=== PATIENT | female | born 1950 | race Caucasian/White ===

== ENCOUNTER → 2020-06-28 | Outpatient (CLI) | payer MEDICARE, MEDICAID ==
[~2020-06-28] MED LIST: HYDR-4226 PO
--- NOTE | 2020-06-28 09:14 | Diagnostic Imaging Report ---
PROCEDURE: MRI lumbar spine. TECHNIQUE: Multiplanar, multisequence MRI of the lumbar spine was performed without contrast. INDICATION: Chronic low back pain. EXAMINATION: Lumbar spine MRI without contrast 06/28/2020 FINDINGS: There is a grade 1 anterolisthesis L5 on S1. Remaining alignment is preserved. Vertebral body heights maintained. Tip of the conus unremarkable in appearance and location. L1-L2: Unremarkable. L2-L3: Unremarkable. L3-L4: There is disc desiccation with minimal left paracentral annular bulging disc material containing a left paracentral annular tear. There is bilateral facet hypertrophy. No central stenosis. Minimal left neural foraminal narrowing is seen with the right neural foramen unremarkable. L4-L5: There is bilateral facet hypertrophy. There is no significant bulging disc material. No central or neural foraminal stenosis. L5-S1: There are bilateral pars defects. There is intervertebral disc space narrowing, disc desiccation and minimal broad-based bulging disc material flattening the ventral thecal sac. No central stenosis appreciated. There is moderate bilateral neural foraminal narrowing. The visualized intra-abdominal structures demonstrate no acute abnormalities. IMPRESSION: 1. Multilevel degenerative findings as above. Bilateral pars defects incidentally noted at L5 with secondary grade 1 anterolisthesis of L5 on S1. Dictated by: Dictated on workstation # [id number]
== END ==
LOC: RAD 07:37
PROVIDERS: ATTEND Family Medicine
DX: M47.816 Spondylosis without myelopathy or radiculopathy, lumbar region (principal); M43.17 Spondylolisthesis, lumbosacral region; M51.36 Other intervertebral disc degeneration, lumbar region; M51.37 Other intervertebral disc degeneration, lumbosacral region; M51.26 Other intervertebral disc displacement, lumbar region; M51.27 Other intervertebral disc displacement, lumbosacral region; M48.07 Spinal stenosis, lumbosacral region
CPT/HCPCS: 72148

== ENCOUNTER 2020-09-16 05:35 | Outpatient (CLI) | payer MEDICARE, MEDICAID ==
[~2020-09-16] VITALS: Ht 166 cm; Wt 54.5 kg
== END 2020-09-16 11:09 | disposition home or self-care (01) ==
LOC: PREOP 05:35
PROVIDERS: ATTEND Specialist
DX: Z01.818 Encounter for other preprocedural examination (principal)

== ENCOUNTER 2020-09-23 05:51 | Day surgery (SDC) | payer MEDICARE, MEDICAID ==
[~2020-09-23] VITALS: Ht 166 cm; Wt 54.5 kg
[2020-09-23] MEDS ORDERED: TIMOLOL MALEATE 0.5% 5 ML (TIMOPTIC) BTL OU PRN (06:15)
[2020-09-23] MEDS ORDERED: LIDOCAINE PF 1% 2 ML VIAL IR PRN (06:15)
[2020-09-23] MEDS ORDERED: POVIDONE (BETADINE) OPHTH SOLN 5% 30 ML OP ONE (06:15)
[2020-09-23] MEDS ORDERED: MOXIFLOXACIN OPHTH SOLN 5 MG/ML 0.3 ML SYRINGE OP ONE (06:15)
[2020-09-23] MEDS: TETRACAINE 0.5% OPHTH SOLN 4 ML BTL (SINGLE DOSE ONLY) OU PRN ×4 (06:18→06:38)
[2020-09-23] MEDS: TROPICAMIDE 1% OPH SOLN (MYDRIACYL) 15 ML BTL OP SCH ×3 (06:25→06:38)
[2020-09-23] MEDS: PHENYLEPHRINE 10% OPHTH (NEO-SYN) 5 ML BTL OU SCH ×3 (06:25→06:38)
[2020-09-23 06:35] VITALS: BP 128/71
--- NOTE | 2020-09-23 07:29 | Ophthalmologist Pre-Op Note ---
Pre-Operative Progress Note H&P Reviewed The H&P was reviewed, patient examined and no changes noted. Date H&P Reviewed: Sep 23, 2020 Time H&P Reviewed: 07:28 Pre-Op Dx Cataract, Right Eye ROBYN POWELL MD Sep 23, 2020 07:29
[2020-09-23] MEDS ORDERED: acetaZOLAMIDE ER 500 MG CAP (DIAMOX SEQUELS) PO ONE (07:30)
[2020-09-23] MEDS ORDERED: MIDAZOLAM 2 MG/2 ML (VERSED) VIAL ONE (07:32)
--- NOTE | 2020-09-23 07:50 | Ophthalmology Operative Report ---
Cataract removal/placement IOL PREOPERATIVE DIAGNOSIS: Cataract Right Eye POSTOPERATIVE DIAGNOSIS: Cataract Right Eye PROCEDURE: Cataract removal and placement of posterior chamber implant, right eye SURGEON: Mohan Powell ANESTHESIA: Topical with sedation COMPLICATIONS: None ESTIMATED BLOOD LOSS: Minimal DESCRIPTION OF PROCEDURE: After proper informed consent was obtained, the patient, a 70 female, was taken to the Operating Room and the right eye was anesthetized with tetracaine. The right eye was then prepped and draped in the usual manner. A wire lid speculum was placed. A paracentesis was made at the left hand position. Preservative free lidocaine was injected into the anterior chamber followed by viscoelastic. A clear corneal incision was made in the temporal position. A capsulorrhexis was preformed and the central nuclear and cortical material were removed. The posterior capsule was polished and Kapil 22.5 AU00T0 IOL was placed into the capsular bag. The residual viscoelastic was aspirated and balanced saline solution was injected into the anterior chamber. Moxifloxacin was injected into the anterior chamber. The wound was checked and found to be water tight. The patient tolerated the procedure well without complications. MOHAN POWELL MD Sep 23, 2020 07:50
[2020-09-23 07:58] VITALS: BP 118/71
--- NOTE | 2020-09-23 12:45 | Anesthesia-General Post-Op ---
MAC Patient Condition Mental Status/LOC: Same as Preop Cardiovascular: Satisfactory Nausea/Vomiting: Absent Respiratory: Satisfactory Pain: Controlled Complications: Absent Post Op Complications Complications None Follow Up Care/Instructions Patient Instructions None needed. Anesthesiology Discharge Order Discharge Order Patient is doing well, no complaints, stable vital signs, no apparent adverse anesthesia problems. No complications reported per nursing. ADRIEL CARDONA CRNA Sep 23, 2020 12:45
== END 2020-09-23 07:58 ==
LOC: SDC 05:51
PROVIDERS: ATTEND Specialist
DX: H25.11 Age-related nuclear cataract, right eye (principal); M19.90 Unspecified osteoarthritis, unspecified site; F32.9 Major depressive disorder, single episode, unspecified; F41.9 Anxiety disorder, unspecified; R51.9 Headache, unspecified; G47.00 Insomnia, unspecified; Z79.891 Long term (current) use of opiate analgesic; Z79.899 Other long term (current) drug therapy
CPT/HCPCS: 66984; V2632

== ENCOUNTER 2020-09-30 05:35 | Outpatient (CLI) | payer MEDICARE, MEDICAID ==
[~2020-09-30] VITALS: Ht 165.1 cm; Wt 55.9 kg
== END 2020-09-30 11:04 | disposition home or self-care (01) ==
LOC: PREOP 05:35
PROVIDERS: ATTEND Specialist
DX: Z01.818 Encounter for other preprocedural examination (principal)

== ENCOUNTER 2020-10-07 06:32 | Day surgery (SDC) | payer MEDICARE, MEDICAID ==
[~2020-10-07] VITALS: Ht 165.1 cm; Wt 55.9 kg
[2020-10-07 06:45] VITALS: BP 118/98
[2020-10-07] MEDS ORDERED: LIDOCAINE PF 1% 2 ML VIAL IR PRN (06:45)
[2020-10-07] MEDS ORDERED: acetaZOLAMIDE ER 500 MG CAP (DIAMOX SEQUELS) PO ONE (06:45)
[2020-10-07] MEDS ORDERED: MOXIFLOXACIN OPHTH SOLN 5 MG/ML 0.3 ML SYRINGE OP ONE (06:45)
[2020-10-07] MEDS ORDERED: POVIDONE (BETADINE) OPHTH SOLN 5% 30 ML OP ONE (06:45)
[2020-10-07] MEDS ORDERED: TIMOLOL MALEATE 0.5% 5 ML (TIMOPTIC) BTL OU PRN (06:45)
[2020-10-07] MEDS: TETRACAINE 0.5% OPHTH SOLN 4 ML BTL (SINGLE DOSE ONLY) OU PRN ×4 (06:46→07:13)
[2020-10-07] MEDS: TROPICAMIDE 1% OPH SOLN (MYDRIACYL) 15 ML BTL OP SCH ×3 (06:58→07:13)
[2020-10-07] MEDS: PHENYLEPHRINE 10% OPHTH (NEO-SYN) 5 ML BTL OU SCH ×3 (06:58→07:13)
[2020-10-07] MEDS ORDERED: MIDAZOLAM 2 MG/2 ML (VERSED) VIAL ONE (07:06)
--- NOTE | 2020-10-07 07:46 | Ophthalmologist Pre-Op Note ---
Pre-Operative Progress Note H&P Reviewed The H&P was reviewed, patient examined and no changes noted. Date H&P Reviewed: Oct 07, 2020 Time H&P Reviewed: 07:45 Pre-Op Dx Cataract, Left Eye ROBYN POWELL MD Oct 07, 2020 07:45
--- NOTE | 2020-10-07 08:08 | Ophthalmology Operative Report ---
Cataract removal/placement IOL PREOPERATIVE DIAGNOSIS: Cataract Left Eye POSTOPERATIVE DIAGNOSIS: Cataract Left Eye PROCEDURE: Cataract removal and placement of posterior chamber implant, left eye SURGEON: Mohan Powell ANESTHESIA: Topical with sedation COMPLICATIONS: None ESTIMATED BLOOD LOSS: Minimal DESCRIPTION OF PROCEDURE: After proper informed consent was obtained, the patient, a 70 female, was taken to the Operating Room and the left eye was anesthetized with tetracaine. The left eye was then prepped and draped in the usual manner. A wire lid speculum was placed. A paracentesis was made at the left hand position. Preservative free lidocaine was injected into the anterior chamber followed by viscoelastic. A clear corneal incision was made in the temporal position. A capsulorrhexis was preformed and the central nuclear and cortical material were removed. The posterior capsule was polished and an Kapil 23.0 AU00T0 was placed into the capsular bag. The residual viscoelastic was aspirated and balanced saline solution was injected into the anterior chamber. Moxifloxacin was injected into the anterior chamber. The wound was checked and found to be water tight. The patient tolerated the procedure well without complications. MOHAN POWELL MD Oct 07, 2020 08:08
[2020-10-07 08:12] VITALS: BP 110/62
--- NOTE | 2020-10-07 10:53 | Anesthesia-General Post-Op ---
MAC Patient Condition Mental Status/LOC: Same as Preop Cardiovascular: Satisfactory Nausea/Vomiting: Absent Respiratory: Satisfactory Pain: Controlled Complications: Absent Post Op Complications Complications None Follow Up Care/Instructions Patient Instructions None needed. Anesthesiology Discharge Order Discharge Order Patient is doing well, no complaints, stable vital signs, no apparent adverse anesthesia problems. No complications reported per nursing. CHRISTIAN SMITH CRNA Oct 07, 2020 10:53
== END 2020-10-07 08:13 ==
LOC: SDC 06:32
PROVIDERS: ATTEND Specialist
DX: H25.12 Age-related nuclear cataract, left eye (principal); F32.9 Major depressive disorder, single episode, unspecified; F41.9 Anxiety disorder, unspecified; M19.90 Unspecified osteoarthritis, unspecified site; G47.00 Insomnia, unspecified; Z79.899 Other long term (current) drug therapy
CPT/HCPCS: 66984; V2632

== ENCOUNTER → 2020-11-04 | Outpatient (CLI) | payer MEDICARE, MEDICAID | LOC: LABNPT 06:05 | PROVIDERS: ATTEND Orthopaedic Surgery | DX: Z01.812 Encounter for preprocedural laboratory examination (principal); Z20.822 Contact with and (suspected) exposure to COVID-19 | CPT/HCPCS: 87635 ==

== ENCOUNTER 2021-02-27 21:03 | Emergency (ER) | payer MEDICARE, MEDICAID ==
[~2021-02-27] VITALS: Ht 167.7 cm; Wt 56.7 kg
[2021-02-27] MEDS ORDERED: ONDANSETRON 4 MG/2 ML (SDV) Z0FRAN IVP ONE (21:15)
[2021-02-27] MEDS ORDERED: LACTATED RINGERS 1,000 ML IV ONE (21:15)
[2021-02-27] MEDS ORDERED: ONDA4TAB11 PO (21:43)
[2021-02-27] MEDS ORDERED: KETOROLAC 30 MG/ML VIAL IVP ONE (21:45)
--- NOTE | 2021-02-27 21:45 | ED General ---
General Chief Complaint: COVID19 Suspect/Confirmed Stated Complaint: COVID POSITIVE Nursing Triage Note: PT TO RM [facility] VIA [facility] W REPORTS OF N/V/D D/T COVID. PT COVID + THIS AM, SYMPTOMS SX SATURDAY. PT REQUESTING ANTIBODY INFUSION THIS VISIT, INFORMS THAT SHE TRIED TO GET SCHEDULED AT [facility] TODAY BUT ALL WERE FULL. PT REPORTS SHE HAS BEEN DRINKING A LOT OF WATER. A&OX4, DENIES PAIN. Source of Information: Patient Exam Limitations: No Limitations History of Present Illness Date Seen by Provider: Feb 27, 2021 Time Seen by Provider: 21:05 Allergies and Home Medications Allergies Coded Allergies: No Known Drug Allergies (Unverified , 02/02/15) Patient Home Medication List No Active Prescriptions or Reported Meds Past Ukaazyz-Cmxqpb-Kqcmoy Hx Patient Social History Tobacco Use?: No Use of E-Cig and/or Vaping dev: No Substance use?: No Alcohol Use?: No Immunizations Up To Date Influenza Vaccine Up-to-Date: No; Not Current First/Initial COVID19 Vaccinat: NONE Second COVID19 Vaccination Huy: NONE Third COVID19 Vaccination Date: NONE COVID19 Vaccine Finance Insurance Manager: NONE Seasonal Allergies Seasonal Allergies: No Past Medical History Surgeries: Yes (cyst from arm, oral sx) Respiratory: No Cardiac: No Neurological: No Gastrointestinal: No Musculoskeletal: No Endocrine: No HEENT: No Cancer: No Psychosocial: No Integumentary: Yes (laury cyst) Blood Disorders: No Physical Exam Vital Signs Vital Signs - First Documented 02/27/21 21:04 Temp 36.9 Pulse 103 Resp 20 B/P (MAP) 138/82 (100) Pulse Ox 96 O2 Delivery Room Air Capillary Refill : Less Than 3 Seconds Height, Weight, BMI Height: 5'6.00" Weight: 125lbs. oz. [id number]; 20.00 BMI Method:Stated Progress/Results/Core Measures Suspected Sepsis SIRS Temperature: Pulse: 103 Respiratory Rate: 20 Blood Pressure 138 /82 Mean: 100 Results/Orders My Orders Orders - JHONY RAMOS MD Ed Iv/Invasive Line Start (02/27/21 21:08) Lactated Ringers (Lr 1000 Ml Iv Solution (02/27/21 21:15) Ondansetron Injection (Zofran Injectio (02/27/21 21:15) Ketorolac Injection (Toradol Injection) (02/27/21 21:45) Medications Given in ED Current Medications Medications Dose Ordered Sig/Champ Route Start Time Stop Time Status Last Admin Dose Admin Lactated Ringer's 1,000 ml @ 0 mls/hr Q0M ONCE IV 02/27/21 21:15 02/27/21 21:16 DC 02/27/21 21:18 0 MLS/HR Ondansetron HCl 8 mg ONCE ONCE IVP 02/27/21 21:15 02/27/21 21:16 DC 02/27/21 21:18 8 MG Vital Signs/I&O 02/27/21 21:04 Temp 36.9 Pulse 103 Resp 20 B/P (MAP) 138/82 (100) Pulse Ox 96 O2 Delivery Room Air Capillary Refill : Less Than 3 Seconds Blood Pressure Mean: 100 Progress Note : Progress Note Vital signs were unremarkable. Patient received Zofran and a liter of IV fluid. She is being discharged home with Zofran Rx. An order for monoclonal antibodies was placed with the pharmacy. See discharge instructions for more discussion. Departure Impression Primary Impression: COVID-19 Additional Impressions: Nausea vomiting and diarrhea Myalgia Disposition: 01 HOME, SELF-CARE Condition: Improved Departure-Patient Inst. Decision time for Depature: 21:42 Referrals: LEÓN JHA DO (PCP/Family) Primary Care Physician Patient Instructions: COVID-19 Overview, Sotrovimab FDA Fact Sheet Add. Discharge Instructions: Drink plenty of clear liquids to stay well-hydrated. Gradually advance your diet with small quantities of bland food as tolerated. An order for monoclonal antibody infusion has been placed with the pharmacy. If they have doses, available for you, you should be called to schedule an appointment time for the infusion. Use Zofran (ondansetron) as prescribed for nausea and vomiting. You may use Tylenol (acetaminophen) for pain or fever. Follow dosing instruc tions on the bottle. Call with questions or concerns. Return to the ER if you have worsening symptoms. All discharge instructions reviewed with patient and/or family. Voiced understanding. Scripts Ondansetron (Ondansetron Odt) 4 Mg Tab.rapdis 4 MG PO Q4H PRN for NAUSEA/VOMITING, #10 TAB Prov: JHONY RAMOS MD 02/27/21 JHONY RAMOS MD Feb 27, 2021 21:45
[2021-02-27 22:15] VITALS: BP 139/82
== END 2021-02-27 22:20 | disposition home or self-care (01) ==
LOC: EDUNIT# 21:03 → ER 21:05
DX: U07.1 COVID-19 (principal)

== ENCOUNTER 2021-03-03 10:52 | Outpatient (CLI) | payer MEDICARE, MEDICAID ==
[~2021-03-03] VITALS: Ht 167.7 cm; Wt 56.7 kg
[~2021-03-03 10:52] MED LIST changes: +ONDA4TAB11 PO
[2021-03-03] MEDS ORDERED: ONDANSETRON 4 MG/2 ML (SDV) Z0FRAN IV PRN (11:00)
[2021-03-03] MEDS ORDERED: CASIRIVIMAB/IMDEVIMAB 1,200 MG in NS (IVPB) 50 ML IV ONE (11:00)
[2021-03-03] MEDS ORDERED: ACETAMINOPHEN 500 MG TAB (TYLENOL) PO PRN (11:00)
[2021-03-03] MEDS ORDERED: diphenhydrAMINE 50 MG/ML INJ (BENADRYL) IV PRN (11:00)
[2021-03-03] MEDS ORDERED: EPINEPHrine INJECTION 1 MG/ML AMP IM PRN (11:00)
[2021-03-03 11:10] VITALS: BP 131/68
[2021-03-03 12:18] VITALS: BP 117/90
[2021-03-04] MEDS ORDERED: ONDA8TAB13 PO (00:49)
[2021-03-04] MEDS ORDERED: PANT40TA2 PO (00:49)
== END 2021-03-03 12:18 ==
LOC: INFUSION 10:52
PROVIDERS: ATTEND Family Medicine
DX: U07.1 COVID-19 (principal)

== ENCOUNTER 2021-03-03 22:48 | Emergency (ER) | payer MEDICARE, MEDICAID ==
[~2021-03-03] VITALS: Ht 165 cm; Wt 56.0 kg
--- NOTE | 2021-03-03 23:07 | ED General ---
General Chief Complaint: COVID19 Suspect/Confirmed Stated Complaint: N,COVID + Source of Information: Patient History of Present Illness Date Seen by Provider: Mar 03, 2021 Time Seen by Provider: 23:05 Initial Comments PT ARRIVES VIA POV FROM HOME PT HAS TESTED POSITIVE FOR COVID-19 ON 02/27/21--WAS SEEN AT DR. JHA'S OFFICE THAT DAY AND TESTED POSITIVE. WAS GIVEN RX FOR ANTIBIOTICS. CAME TO ER LATER THAT SAME DAY BECAUSE SHE FELT BAD--GIVEN IV FLUIDS AND NAUSEA MEDICATIONS AND WAS SENT HOME WITH RX FOR ZOFRAN ODT 4 MG HAD MONOCLONAL ANTIBODY INFUSION TODAY STATES SHE "JUST JUST DOESN'T FEEL GOOD" STATES "I'M DEHYDRATED AND I'M NAUSEATED AND I'M WEAK AND TIRED AND I JUST DON'T FEEL GOOD" HAS SLIGHT COUGH AND CONGESTION NO CHEST PAIN OR SHORTNESS OF BREATH HAS NOT HAD A HEADACHE FOR 2 DAYS HAS NOT HAD FEVER STILL WITH BODY ACHES, AND LOWER BACK ACHE--HAS CHRONIC BACK PAIN HAS NOT HAD DIARRHEA SINCE Saturday02/27/21, HAD BM TODAY HAS NOT VOMITED FOR SEVERAL DAYS, BUT STILL C/O NAUSEA--STATES "I HAVE TO FORCE MYSELF TO EAT AND DRINK". DENIES LOSS OF TASTE OR SMELL. TOOK 1 ZOFRAN THIS MORNING, STATES "IT'S NOT WORKING" PT IS STILL URINATING, BUT STATES "I HAVE TO PUSH IT OUT". NO PAIN OR DISCOMFORT ON URINATION NO ABDOMINAL PAIN TOOK 1 TYLENOL EARLIER TODAY, STATES "IT'S NOT HELPING" SHE STATES THE TYLENOL IS MAKING HER SICK DENIES CHRONIC ILLNESSES, AND DOES NOT TAKE ANY DAILY MEDICATIONS. PCP: DR. JHA Allergies and Home Medications Allergies Coded Allergies: No Known Drug Allergies (Unverified , 02/02/15) Patient Home Medication List Home Medication List Reviewed: Yes Ondansetron (Ondansetron Odt) 4 Mg Tab.rapdis, 4 MG PO Q4H PRN for NAUSEA/VOMITING Prescribed by: JHONY APONTE on 02/27/212142 Ondansetron (Ondansetron Odt) 8 Mg Tab.rapdis, 8 MG PO Q6H Prescribed by: MICHAEL BRAGG on 03/04/21 0049 Pantoprazole Sodium (Protonix) 40 Mg Tablet.dr, 40 MG PO DAILY Prescribed by: MICHAEL BRAGG on 03/04/21 0049 Review of Systems Review of Systems Constitutional: see HPI; No diaphoresis, No dizziness, No fever; malaise, weakness EENTM: no symptoms reported Respiratory: cough; No short of breath Cardiovascular: no symptoms reported Gastrointestinal: see HPI; No abdominal pain; loss of appetite, nausea Genitourinary: see HPI Musculoskeletal: see HPI Skin: no symptoms reported Psychiatric/Neurological: No Symptoms Reported Hematologic/Lymphatic: No Symptoms Reported Immunological/Allergic: no symptoms reported Past Rsdvirj-Mchggv-Blvvwh Hx Patient Social History Tobacco Use?: No Substance use?: No Alcohol Use?: No Immunizations Up To Date First/Initial COVID19 Vaccinat: NONE Second COVID19 Vaccination Huy: NONE Third COVID19 Vaccination Date: NONE Seasonal Allergies Seasonal Allergies: No Past Medical History Surgeries: Yes (cyst from arm, oral sx;BILATERAL CATARACT SURGERY) Eye Surgery Respiratory: No Cardiac: No 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 oz. 56.352115sd; 20.16 BMI Method:Stated General Appearance: No Apparent Distress, WD/WN, Other (DOES NOT APPEAR ILL OR TO BE IN ANY DISCOMFORT OR DISTRESS) HEENT: Normal ENT Inspection Neck: Normal Inspection Respiratory: Normal Breath Sounds, No Accessory Muscle Use, No Respiratory Distress Cardiovascular: Regular Rate, Rhythm, No Edema, No JVD, No Murmur, Normal Peripheral Pulses Gastrointestinal: Normal Bowel Sounds, No Organomegaly, Non Tender, Soft Back: Normal Inspection, No CVA Tenderness, No Vertebral Tenderness Extremity: Normal Capillary Refill, Normal Inspection, Normal Range of Motion, Non Tender, No Calf Tenderness, No Pedal Edema Neurologic/Psychiatric: Alert, Oriented x3, No Motor/Sensory Deficits, pad tufter II- XII Norm as Tested Skin: Normal Color, Warm/Dry Progress/Results/Core Measures Suspected Sepsis SIRS Temperature: Pulse: Respiratory Rate: Laboratory Tests 03/03/21 23:59: White Blood Count 4.5 Blood Pressure / Mean: Laboratory Tests 03/03/21 23:59: Creatinine 0.76, Platelet Count 186, Total Bilirubin 0.6 Results/Orders Lab Results Laboratory Tests Test 03/03/21 23:57 03/03/21 23:59 Range/Units Urine Color YELLOW Urine Clarity CLEAR Urine pH 6.5 5-9 Urine Specific [place] 1.015 L 1.016-1.022 Urine Protein NEGATIVE NEGATIVE Urine Glucose (UA) NEGATIVE NEGATIVE Urine Ketones NEGATIVE NEGATIVE Urine Nitrite NEGATIVE NEGATIVE Urine Bilirubin NEGATIVE NEGATIVE Urine Urobilinogen 0.2 < = 1.0 MG/DL Urine Leukocyte Esterase NEGATIVE NEGATIVE Urine RBC (Auto) NEGATIVE NEGATIVE Urine RBC NONE /HPF Urine WBC NONE /HPF Urine Crystals NONE /LPF Urine Bacteria NEGATIVE /HPF Urine Casts NONE /LPF Urine Mucus NEGATIVE /LPF Urine Culture Indicated NO White Blood Count 4.5 4.3-11.0 10^3/uL Red Blood Count 4.69 3.80-5.11 10^6/uL Hemoglobin 14.7 11.5-16.0 g/dL Hematocrit 43 35-52 % Mean Corpuscular Volume 91 80-99 fL Mean Corpuscular Hemoglobin 31 25-34 pg Mean Corpuscular Hemoglobin Concent 35 32-36 g/dL Red Cell Distribution Width 11.9 10.0-14.5 % Platelet Count 186 130-400 10^3/uL Mean Platelet Volume 9.8 9.0-12.2 fL Immature Granulocyte % (Auto) 1 % Neutrophils (%) (Auto) 57 42-75 % Lymphocytes (%) (Auto) 32 12-44 % Monocytes (%) (Auto) 10 0-12 % Eosinophils (%) (Auto) 0 0-10 % Basophils (%) (Auto) 0 0-10 % Neutrophils # (Auto) 2.5 1.8-7.8 10^3/uL Lymphocytes # (Auto) 1.4 1.0-4.0 10^3/uL Monocytes # (Auto) 0.4 0.0-1.0 10^3/uL Eosinophils # (Auto) 0.0 0.0-0.3 10^3/uL Basophils # (Auto) 0.0 0.0-0.1 10^3/uL Immature Granulocyte # (Auto) 0.0 0.0-0.1 10^3/uL Sodium Level 135 135-145 MMOL/L Potassium Level 3.8 3.6-5.0 MMOL/L Chloride Level 97 L 98-107 MMOL/L Carbon Dioxide Level 26 21-32 MMOL/L Anion Gap 12 5-14 MMOL/L Blood Urea Nitrogen 12 7-18 MG/DL Creatinine 0.76 0.60-1.30 MG/DL Estimat Glomerular Filtration Rate 84 BUN/Creatinine Ratio 16 Glucose Level 106 H 70-105 MG/DL Calcium Level 9.3 8.5-10.1 MG/DL Corrected Calcium 9.1 8.5-10.1 MG/DL Magnesium Level 2.0 1.6-2.4 MG/DL Total Bilirubin 0.6 0.1-1.0 MG/DL Aspartate Amino Transf (AST/SGOT) 21 5-34 U/L Alanine Aminotransferase (ALT/SGPT) 17 0-55 U/L Alkaline Phosphatase 55 40-136 U/L Total Protein 7.6 6.4-8.2 GM/DL Albumin 4.3 3.2-4.5 GM/DL Amylase Level 71 25-125 U/L Lipase 40 8-78 U/L My Orders Orders - MICHAEL BRAGG DO Ed Iv/Invasive Line Start (03/03/21 23:46) Monitor-Rhythm Ecg Trace Only (03/03/21 23:46) Amylase (03/03/21 23:46) Cbc With Automated Diff (03/03/21 23:46) Comprehensive Metabolic Panel (03/03/21 23:46) Lipase (03/03/21 23:46) Magnesium (03/03/21 23:46) Ua Culture If Indicated (03/03/21 23:46) Ondansetron Injection (Zofran Injectio (03/04/21 00:00) Ed Iv/Invasive Line Start (03/03/21 23:46) Lactated Ringers (Lr 1000 Ml Iv Solution (03/04/21 00:00) Medications Given in ED Current Medications Medications Dose Ordered Sig/Champ Route Start Time Stop Time Status Last Admin Dose Admin Lactated Ringer's 1,000 ml @ 0 mls/hr Q0M ONCE IV 03/04/21 00:00 03/04/21 00:01 DC 03/03/21 23:56 0 MLS/HR Ondansetron HCl 8 mg ONCE ONCE IVP 03/04/21 00:00 03/04/21 00:01 DC 03/03/21 23:56 8 MG Vital Signs/I&O 03/03/21 03/04/21 23:10 00:50 Temp 36.0 Pulse 108 88 Resp 16 18 B/P (MAP) 141/84 (103) 129/90 Pulse Ox 94 98 O2 Delivery Room Air Room Air Capillary Refill : Progress Note : Progress Note PLACED IN ISOLATION ROOM PPE WORN AT ALL TIMES GIVEN IV FLUIDS AND ZOFRAN STATES SHE FEELS BETTER AT DISMISSAL NO DETERIORATION IN PT'S CONDITION DURING ER STAY Departure Impression Primary Impression: COVID-19 Additional Impressions: NAUSEA Myalgia Disposition: HOME, SELF-CARE Condition: Stable Departure-Patient Inst. Decision time for Depature: 00:47 Referrals: LEÓN JHA DO (PCP/Family) Primary Care Physician Patient Instructions: COVID-19 (DC), Nausea and Vomiting, Adult (DC), Preventing the Spread of an Infectious Disease Add. Discharge Instructions: LOTS OF CLEAR LIQUIDS--WATER, BROTH, JELLO, GATORADE BRATS DIET--BANANAS, RICE, APPLESAUCE, TOAST, SALTINES TYLENOL 1 GRAM PLUS MOTRIN 800 MG 4 TIMES A DAY NEEDED FOR PAIN OR FEVER FOLLOW UP WITH DR. JHA ON SATURDAY IF NO BETTER, RETURN TO ER IF WORSE All discharge instructions reviewed with patient and/or family. Voiced understanding. Scripts Pantoprazole Sodium (Protonix) 40 Mg Tablet.dr 40 MG PO DAILY, #15 TAB Prov: MICHAEL BRAGG DO 03/04/21 Ondansetron (Ondansetron Odt) 8 Mg Tab.rapdis 8 MG PO Q6H, #15 TAB Prov: MICHAEL BRAGG DO 03/04/21 MICHAEL BRAGG DO Mar 03, 2021 23:07
[2021-03-04] MEDS ORDERED: LACTATED RINGERS 1,000 ML IV ONE
[2021-03-04] MEDS ORDERED: ONDANSETRON 4 MG/2 ML (SDV) Z0FRAN IVP ONE
[2021-03-04 00:07] LABS: BILIRUBIN,URINE NEGATIVE (NEGATIVE); CLARITY,URINE CLEAR; COLOR,URINE YELLOW; GLUCOSE, URINE (UA) NEGATIVE (NEGATIVE); KETONES,URINE NEGATIVE (NEGATIVE); LEUKOCYTE ESTERASE ,URINE NEGATIVE (NEGATIVE); NITRITE,URINE NEGATIVE (NEGATIVE); PH,URINE 6.5 (5-9); PROTEIN,URINE NEGATIVE (NEGATIVE)
[2021-03-04 00:12] LABS: BASOPHILS % (AUTO) 0 % (0-10); EOSINOPHILS % (AUTO) 0 % (0-10); HEMATOCRIT 43 % (35-52); HEMOGLOBIN 14.7 g/dL (11.5-16.0); LYMPHOCYTES # (AUTO) 1.4 10^3/uL (1.0-4.0); LYMPHOCYTES % (AUTO) 32 % (12-44); MEAN CORPUSCULAR HEMOGLOBIN 31 pg (25-34); MEAN CORPUSCULAR HGB CONC 35 g/dL (32-36); MEAN CORPUSCULAR VOLUME 91 fL (80-99); MEAN PLATELET VOLUME 9.8 fL (9.0-12.2); MONOCYTES # (AUTO) 0.4 10^3/uL (0.0-1.0); MONOCYTES % (AUTO) 10 % (0-12); NEUTROPHILS # (AUTO) 2.5 10^3/uL (1.8-7.8); NEUTROPHILS % (AUTO) 57 % (42-75); PLATELET COUNT 186 10^3/uL (130-400); WHITE BLOOD COUNT 4.5 10^3/uL (4.3-11.0)
[2021-03-04 00:15] LABS: BACTERIA,URINE NEGATIVE /HPF
[2021-03-04 00:29] LABS: ALBUMIN 4.3 GM/DL (3.2-4.5); POTASSIUM 3.8 MMOL/L (3.6-5.0)
[2021-03-04 00:30] LABS: CALCIUM 9.3 MG/DL (8.5-10.1)
[2021-03-04 00:31] LABS: TOTAL PROTEIN 7.6 GM/DL (6.4-8.2)
[2021-03-04 00:33] LABS: BILIRUBIN,TOTAL 0.6 MG/DL (0.1-1.0)
[2021-03-04 00:35] LABS: CREATININE SERUM 0.76 MG/DL (0.60-1.30)
[2021-03-04] MEDS ORDERED: ONDA8TAB13 PO (00:49)
[2021-03-04] MEDS ORDERED: PANT40TA2 PO (00:49)
[2021-03-04 00:50] VITALS: BP 129/90
== END 2021-03-04 00:55 | disposition home or self-care (01) ==
LOC: EDUNIT# 22:48 → ER 22:54
DX: U07.1 COVID-19 (principal); R11.0 Nausea; M79.10 Myalgia, unspecified site
CPT/HCPCS: 36415; 80053; 81000; 82150; 83690; 83735; 85025; 93041; 96361; 96374

== ENCOUNTER 2021-10-05 20:00 | Emergency (ER) | payer MEDICARE, MEDICAID ==
[~2021-10-05] VITALS: Ht 165.1 cm; Wt 56.1 kg
[~2021-10-05 20:00] MED LIST changes: +ONDA8TAB13 PO; +PANT40TA2 PO
[2021-10-05] MEDS ORDERED: fentaNYL INJ 100 MCG/2 ML AMP IVP STA (20:20)
[2021-10-05 20:22] LABS: BILIRUBIN,URINE NEGATIVE (NEGATIVE); CLARITY,URINE CLEAR; COLOR,URINE YELLOW; GLUCOSE, URINE (UA) NEGATIVE (NEGATIVE); KETONES,URINE NEGATIVE (NEGATIVE); LEUKOCYTE ESTERASE ,URINE TRACE (NEGATIVE); NITRITE,URINE NEGATIVE (NEGATIVE); PROTEIN,URINE NEGATIVE (NEGATIVE)
--- NOTE | 2021-10-05 20:27 | ED Abdominal Pain ---
General Chief Complaint: Back Problems Stated Complaint: LOW BACK/KIDNEY NAUSEA Source of Information: Patient Exam Limitations: No Limitations History of Present Illness Date Seen by Provider: Oct 05, 2021 Time Seen by Provider: 20:23 Initial Comments Patient is a 71-year-old female who presents to the ED for low back pain and left lower quad abdominal pain. She has a history of low back pain. Had a spinal block performed about a year ago and epidural 1 month ago. She has been having this lower back pain over the past 4 to 5 months. She denies of any bowel or urine incontinence, saddle paresthesia, lower extremity weakness or sensory changes. She is currently on tramadol but this upsets her stomach. Start developing this left lower quad abdominal pain initially dull and achy and intermittent but became worse this evening described as sharp. She does report urinating frequently worse at night. History of cholecystectomy. Denies of any weight loss, fever, chest pain, cough or shortness of breath. Has been feeling nauseous but no vomiting. Intermittent diarrhea and constipation but denies of any dark tarry stool, bloody stool or mucousy stool. Allergies and Home Medications Allergies Coded Allergies: No Known Drug Allergies (Unverified , 02/02/15) Patient Home Medication List Home Medication List Reviewed: Yes Hydrocodone/Acetaminophen (Hydrocodone-Acetamin 5-325 mg) 5 Mg-325 Mg Tablet, 1 TAB PO Q4H PRN for PAIN-MODERATE (5-7) Prescribed by: YOLY BEST on 10/05/212240 Ondansetron (Ondansetron Odt) 4 Mg Tab.rapdis, 4 MG PO Q4H PRN for NAUSEA/VOMITING Prescribed by: JHONY APONTE on 02/27/212142 Ondansetron (Ondansetron Odt) 8 Mg Tab.rapdis, 8 MG PO Q6H Prescribed by: MICHAEL BRAGG on 03/04/2148 Pantoprazole Sodium (Protonix) 40 Mg Tablet., 40 MG PO DAILY Prescribed by: MICHAEL BRAGG on 03/04/2148 Pantoprazole Sodium (Protonix) 40 Mg Tablet.dr, 40 MG PO DAILY Prescribed by: YOLY BEST on 10/05/212240 Review of Systems Review of Systems Constitutional: No chills, No diaphoresis, No malaise, No weakness EENTM: No Eye Pain Respiratory: Denies Cough, Denies Shortness of Air Cardiovascular: Denies Chest Pain Gastrointestinal: Abdominal Pain, Constipated, Diarrhea, Nausea; Denies Rectal Bleeding, Denies Vomiting Genitourinary: Denies Burning, Denies Discharge; Frequency Musculoskeletal: No back pain, No joint pain Skin: No change in color, No change in hair/nails All Other Systems Reviewed Negative Unless Noted: Yes Past Vhanaqy-Njfxha-Jycalh Hx Patient Social History Tobacco Use?: No Use of E-Cig and/or Vaping dev: No Substance use?: No Alcohol Use?: No Pt feels they are or have been: No Immunizations Up To Date Influenza Vaccine Up-to-Date: No; Not Current First/Initial COVID19 Vaccinat: NONE Second COVID19 Vaccination Huy: NONE Third COVID19 Vaccination Date: NONE Seasonal Allergies Seasonal Allergies: No Past Medical History Surgeries: Yes (cyst from arm, oral sx;BILATERAL CATARACT SURGERY) Eye Surgery Respiratory: No Cardiac: No Neurological: No ASSESSMENT COUNSELOR History: Menopausal Genitourinary: No Gastrointestinal: No Musculoskeletal: Yes Chronic Back Pain Endocrine: No HEENT: No Cancer: No Psychosocial: No Integumentary: Yes (laury cyst) Blood Disorders: No Physical Exam Vital Signs Vital Signs - First Documented 10/05/21 20:21 Temp 37.0 Pulse 119 Resp 20 B/P (MAP) 166/101 (122) Pulse Ox 96 O2 Delivery Room Air Capillary Refill : Height/Weight/BMI Height: 5'6.00" Weight: 125lbs. oz. 56.837306pa; 20.00 BMI Method:Stated General Appearance: WD/WN, no apparent distress HEENT: PERRL/EOMI, normal ENT inspection, TMs normal, pharynx normal Neck: non-tender, full range of motion, supple Respiratory: chest non-tender, lungs clear, normal breath sounds, no respiratory distress, no accessory muscle use Cardiovascular: regular rate, rhythm, no edema, no gallop, no JVD Gastrointestinal: normal bowel sounds, soft, no organomegaly, tenderness (llq abd pain) Rectal: normal exam Extremities: normal range of motion, non-tender, normal inspection, no pedal edema Back: normal inspection, no CVA tenderness, no vertebral tenderness Neurologic/Psychiatric: storeperson II-XII nml as tested, no motor/sensory deficits, alert, normal mood/affect, oriented x 3 Skin: normal color, warm/dry Progress/Results/Core Measures Results/Orders Lab Results Laboratory Tests Test 10/05/21 20:15 10/05/21 20:29 Range/Units Urine Color YELLOW Urine Clarity CLEAR Urine pH 6.0 5-9 Urine Specific Cornelia 1.020 1.016-1.022 Urine Protein NEGATIVE NEGATIVE Urine Glucose (UA) NEGATIVE NEGATIVE Urine Ketones NEGATIVE NEGATIVE Urine Nitrite NEGATIVE NEGATIVE Urine Bilirubin NEGATIVE NEGATIVE Urine Urobilinogen 0.2 < = 1.0 MG/DL Urine Leukocyte Esterase TRACE H NEGATIVE Urine RBC (Auto) NEGATIVE NEGATIVE Urine RBC NONE /HPF Urine WBC 2-5 /HPF Urine Squamous Epithelial Cells NONE /HPF Urine Renal Epithelial Cells NONE /HPF Urine Crystals NONE /LPF Urine Bacteria NEGATIVE /HPF Urine Casts NONE /LPF Urine Mucus NEGATIVE /LPF Urine Culture Indicated YES White Blood Count 7.0 4.3-11.0 10^3/uL Red Blood Count 4.20 3.80-5.11 10^6/uL Hemoglobin 13.5 11.5-16.0 g/dL Hematocrit 38 35-52 % Mean Corpuscular Volume 91 80-99 fL Mean Corpuscular Hemoglobin 32 25-34 pg Mean Corpuscular Hemoglobin Concent 35 32-36 g/dL Red Cell Distribution Width 12.2 10.0-14.5 % Platelet Count 164 130-400 10^3/uL Mean Platelet Volume 10.7 9.0-12.2 fL Immature Granulocyte % (Auto) 0 % Neutrophils (%) (Auto) 52 42-75 % Lymphocytes (%) (Auto) 40 12-44 % Monocytes (%) (Auto) 6 0-12 % Eosinophils (%) (Auto) 1 0-10 % Basophils (%) (Auto) 0 0-10 % Neutrophils # (Auto) 3.6 1.8-7.8 10^3/uL Lymphocytes # (Auto) 2.8 1.0-4.0 10^3/uL Monocytes # (Auto) 0.5 0.0-1.0 10^3/uL Eosinophils # (Auto) 0.1 0.0-0.3 10^3/uL Basophils # (Auto) 0.0 0.0-0.1 10^3/uL Immature Granulocyte # (Auto) 0.0 0.0-0.1 10^3/uL Sodium Level 139 135-145 MMOL/L Potassium Level 3.7 3.6-5.0 MMOL/L Chloride Level 102 98-107 MMOL/L Carbon Dioxide Level 24 21-32 MMOL/L Anion Gap 13 5-14 MMOL/L Blood Urea Nitrogen 12 7-18 MG/DL Creatinine 0.85 0.60-1.30 MG/DL Estimat Glomerular Filtration Rate 74 BUN/Creatinine Ratio 14 Glucose Level 170 H 70-105 MG/DL Calcium Level 9.3 8.5-10.1 MG/DL Corrected Calcium 9.1 8.5-10.1 MG/DL Total Bilirubin 1.0 0.1-1.0 MG/DL Aspartate Amino Transf (AST/SGOT) 18 5-34 U/L Alanine Aminotransferase (ALT/SGPT) 17 0-55 U/L Alkaline Phosphatase 49 40-136 U/L Total Protein 6.7 6.4-8.2 GM/DL Albumin 4.3 3.2-4.5 GM/DL Lipase 19 8-78 U/L My Orders Orders - JAYDA HOWARD Urinalysis (10/05/21 20:04) Cbc With Automated Diff (10/05/21 20:20) Comprehensive Metabolic Panel (10/05/21 20:20) Lipase (10/05/21 20:20) Ct Abdomen/Pelvis W (10/05/21 20:20) Fentanyl Inj (Sublimaze Injection) (10/05/21 20:20) Ondansetron Injection (Zofran Injectio (10/05/21 20:30) Urine Culture (10/05/21 20:15) Iohexol Injection (Omnipaque 350 Mg/Ml 1 (10/05/21 21:15) Ns (Ivpb) (Sodium Chloride 0.9% Ivpb Bag (10/05/21 21:15) Medications Given in ED Vital Signs/I&O 10/05/21 10/05/21 20:21 22:55 Temp 37.0 Pulse 119 67 Resp 20 20 B/P (MAP) 166/101 (122) 118/61 Pulse Ox 96 96 O2 Delivery Room Air Room Air Departure Communication (PCP) Patient with a history of chronic low back pain who presents the ED with low back pain and left side abdominal pain. Patient without any new falls. She has no neurological red flag findings such as bowel or urine incontinence or saddle paresthesia. She had an MRI performed last year with degenerative changes to the lower back. She states she had epidural 1 month ago. She is afebrile. Pain with movement. Was given dose of pain medication with provement of pain. She is complaining of this left lower quadrant pain. After talking the patient she states she has been having intermittent episodes of diarrhea and then constipation. Denies of any dark tarry stool currently. She states she has had dark tarry stool in the past. Has been taken Pepto-Bismol Ary-[place] without much improvement. She does report some abdominal discomfort, bloating, indigestion, upset stomach which could be some form of GERD, gastritis, IBS. Discussed starting Protonix. CT abdomen pelvis was negative for any acute abnormality. Patient states she has been taken tramadol but this upsets her stomach. Did offer something different for a few days that she may try. I discussed diet changes and further evaluation outpatient. She is denies history of colonoscopy in the past. She is very anxious which makes me believe this may be more IBS type pain however with her upper upset stomach may consider PPI and continue with Tums, Maalox. If any worsening symptoms return back to ED for further evaluation. Outpatient follow-up with your PCP Impression Primary Impression: Back pain Additional Impression: Abdominal pain Disposition: 01 HOME, SELF-CARE Condition: Stable Departure-Patient Inst. Decision time for Depature: 22:40 Referrals: LEÓN JHA DO (PCP/Family) Primary Care Physician Patient Instructions: Abdominal Pain, Adult ED Scripts Pantoprazole Sodium (Protonix) 40 Mg Tablet. 40 MG PO DAILY, #20 TAB Prov: JAYDA HOWARD 10/05/21 Hydrocodone/Acetaminophen (Hydrocodone-Acetamin 5-325 mg) 5 Mg-325 Mg Tablet 1 TAB PO Q4H PRN for PAIN-MODERATE (5-7), #6 TAB Prov: JAYDA HOWARD 10/05/21 JAYDA HOWARD Oct 05, 2021 20:27
[2021-10-05 20:29] LABS: BACTERIA,URINE NEGATIVE /HPF
[2021-10-05] MEDS ORDERED: ONDANSETRON 4 MG/2 ML (SDV) Z0FRAN IVP ONE (20:30)
[2021-10-05 20:36] LABS: BASOPHILS % (AUTO) 0 % (0-10); EOSINOPHILS # (AUTO) 0.1 10^3/uL (0.0-0.3); EOSINOPHILS % (AUTO) 1 % (0-10); HEMATOCRIT 38 % (35-52); HEMOGLOBIN 13.5 g/dL (11.5-16.0); LYMPHOCYTES # (AUTO) 2.8 10^3/uL (1.0-4.0); LYMPHOCYTES % (AUTO) 40 % (12-44); MEAN CORPUSCULAR HEMOGLOBIN 32 pg (25-34); MEAN CORPUSCULAR HGB CONC 35 g/dL (32-36); MEAN CORPUSCULAR VOLUME 91 fL (80-99); MEAN PLATELET VOLUME 10.7 fL (9.0-12.2); MONOCYTES # (AUTO) 0.5 10^3/uL (0.0-1.0); MONOCYTES % (AUTO) 6 % (0-12); NEUTROPHILS # (AUTO) 3.6 10^3/uL (1.8-7.8); NEUTROPHILS % (AUTO) 52 % (42-75); PLATELET COUNT 164 10^3/uL (130-400)
[2021-10-05 21:01] LABS: ALBUMIN 4.3 GM/DL (3.2-4.5); CALCIUM 9.3 MG/DL (8.5-10.1); CREATININE SERUM 0.85 MG/DL (0.60-1.30); POTASSIUM 3.7 MMOL/L (3.6-5.0); TOTAL PROTEIN 6.7 GM/DL (6.4-8.2)
[2021-10-05] MEDS ORDERED: IOHEXOL 350 MG/ML 100 ML (OMNIPAQUE 350) VIAL IV ONE (21:15)
[2021-10-05] MEDS ORDERED: NS 100 ML (IVPB) BAG IV ONE (21:15)
--- NOTE | 2021-10-05 22:35 | Diagnostic Imaging Report ---
PROCEDURE: CT abdomen and pelvis with contrast. TECHNIQUE: Multiple contiguous axial images were obtained through the abdomen and pelvis after administration of intravenous contrast. Auto Exposure Controls were utilized during the CT exam to meet ALARA standards for radiation dose reduction. All CT scans use one or more of the following dose optimizing techniques: automated exposure control, MA and/or KvP adjustment based on patient size and exam type or iterative reconstruction. INDICATION: Left lower quadrant abdominal pain FINDINGS: No focal hepatic or splenic abnormality is identified. Gallbladder is surgically absent with mild prominence of biliary tree. No pancreatic, adrenal gland or focal renal abnormality is identified. 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 There is minimal aortoiliac atherosclerotic calcification. There is no evidence of bowel obstruction. No free fluid is seen within the abdomen or pelvis. Unopacified bladder is unremarkable in appearance. There is localized L5-S1 degenerative disc disease. No focal inflammation or organized fluid collection is seen. There is no evidence of pathologically enlarged adenopathy. IMPRESSION: No acute abnormality is detected. Dictated by: Dictated on workstation # [id number]
[2021-10-05] MEDS ORDERED: PANT40TA2 PO (22:41)
[2021-10-05] MEDS ORDERED: ACHD5005 PO (22:41)
[2021-10-05 22:55] VITALS: BP 118/61
== END 2021-10-05 23:00 | disposition home or self-care (01) ==
LOC: EDUNIT# 20:00 → ER 20:03
DX: M54.50 Low back pain, unspecified (principal); R10.32 Left lower quadrant pain; Z90.49 Acquired absence of other specified parts of digestive tract; Z87.39 Personal history of other diseases of the musculoskeletal system and connective tissue; Z28.310 Unvaccinated for COVID-19
CPT/HCPCS: 36415; 74177; 80053; 81000; 83690; 85025; 87088

== ENCOUNTER → 2021-11-13 | Outpatient (CLI) | payer MEDICARE, MEDICAID ==
[~2021-11-13] MED LIST changes: +ACHD5005 PO
[2021-11-13 11:01] LABS: HEMATOCRIT 43 % (35-52); HEMOGLOBIN 14.7 g/dL (11.5-16.0); MEAN CORPUSCULAR HEMOGLOBIN 32 pg (25-34); MEAN CORPUSCULAR HGB CONC 34 g/dL (32-36); MEAN CORPUSCULAR VOLUME 93 fL (80-99); MEAN PLATELET VOLUME 10.5 fL (9.0-12.2); PLATELET COUNT 173 10^3/uL (130-400); WHITE BLOOD COUNT 5.1 10^3/uL (4.3-11.0)
[2021-11-13 11:14] LABS: ALBUMIN 4.5 GM/DL (3.2-4.5)
[2021-11-13 11:15] LABS: POTASSIUM 4.1 MMOL/L (3.6-5.0)
[2021-11-13 11:16] LABS: CALCIUM 9.5 MG/DL (8.5-10.1)
[2021-11-13 11:17] LABS: TOTAL PROTEIN 7.2 GM/DL (6.4-8.2)
[2021-11-13 11:19] LABS: BILIRUBIN,TOTAL 0.8 MG/DL (0.1-1.0)
[2021-11-13 11:20] LABS: CREATININE SERUM 0.8 MG/DL (0.60-1.30)
== END ==
LOC: LAB 10:33
PROVIDERS: ATTEND Family Medicine
DX: Z01.89 Encounter for other specified special examinations (principal)
CPT/HCPCS: 36415; 80053; 85027

== ENCOUNTER 2021-11-22 06:15 | Outpatient (CLI) | payer MEDICARE, MEDICAID ==
[~2021-11-22] VITALS: Ht 166.4 cm; Wt 52.5 kg
[2021-11-22] MEDS ORDERED: TRAM50TA3 PO (10:59)
== END 2021-11-22 11:05 | disposition home or self-care (01) ==
LOC: PREOP 06:15
PROVIDERS: ATTEND Surgery
DX: Z01.818 Encounter for other preprocedural examination (principal)

== ENCOUNTER 2021-12-01 12:37 | Day surgery (SDC) | payer MEDICARE, MEDICAID ==
[~2021-12-01] VITALS: Ht 166 cm; Wt 52.5 kg
[~2021-12-01 12:37] MED LIST changes: +TRAM50TA3 PO
[2021-12-01] MEDS ORDERED: LACTATED RINGERS 1,000 ML IV STA (12:53)
[2021-12-01 13:00] VITALS: BP 122/74
[2021-12-01] MEDS ORDERED: MIDAZOLAM 2 MG/2 ML (VERSED) VIAL ONE (14:33)
[2021-12-01] MEDS ORDERED: PROPOFOL INJECTION 50 ML IV ONE (14:33)
--- NOTE | 2021-12-01 14:34 | Progress Note-Pre Operative ---
Pre-Operative Progress Note Date of Available H&P: Nov 06, 2021 Date H&P Reviewed: Dec 01, 2021 Time H&P Reviewed: 14:35 History & Physical: H&P Reviewed Pre-Operative Diagnosis: Screening Colonoscopy and Epigastric pain CECILIO CARRILLO DO Dec 01, 2021 14:34
[2021-12-01] MEDS: HURRICAINE EXT TUBE (BENZOCAINE) XX PRN (15:10)
--- NOTE | 2021-12-01 15:54 | Progress Note-Post Operative ---
Post-Operative Progess Note Surgeon (s)/Home Health Clinical Liaison (s) Surgeon CECILIO CARRILLO DO Home Health Clinical Liaison: N/A Pre-Operative Diagnosis Screening Colonoscopy and Epigastric pain Post-Operative Diagnosis Reflux esophagitis Duodenal ulcer Small hiatal hernia Normal colon Procedure & Operative Findings Date of Procedure 12/01/21 Procedure Performed/Findings EGD with biopsies antral polyps colonoscopy Anesthesia Type per anesthesiologist Estimated Blood Loss Estimated blood loss (mL): none Specimens/Packing Specimens Removed duodenal ulcer, antral, and GE biopsies CECILIO CARRILLO DO Dec 01, 2021 15:54
[2021-12-01 15:55] VITALS: BP 116/59
[2021-12-01] MEDS ORDERED: SUCR1TAB36 PO (15:55)
[2021-12-01] MEDS ORDERED: PANT40TA2 PO (15:55)
--- NOTE | 2021-12-01 15:56 | Anesthesia-General Post-Op ---
MAC Patient Condition Mental Status/LOC: Same as Preop Cardiovascular: Satisfactory Nausea/Vomiting: Absent Respiratory: Satisfactory Pain: Controlled Complications: Absent Post Op Complications Complications None Follow Up Care/Instructions Patient Instructions None needed. Anesthesiology Discharge Order Discharge Order Patient is doing well, no complaints, stable vital signs, no apparent adverse anesthesia problems. No complications reported per nursing. ANNA RICH DO Dec 01, 2021 15:56
--- NOTE | 2021-12-01 15:56 | Discharge Inst-Simple/Standard ---
Discharge Inst-Standard Reconcile Patient Problems Problems Reviewed?: Yes Patient Instructions/Follow Up Plan of Care/Instructions/FU: f/u in [address] Erazo Activity as Tolerated: Yes Discharge Diet: Regular Diet CECILIO ERAZO DO Dec 01, 2021 15:56
[2021-12-01 16:00] VITALS: BP 113/60
[2021-12-01 16:30] VITALS: BP 125/70
--- NOTE | 2021-12-01 23:49 | OPERATIVE REPORT ---
DATE OF SERVICE: 12/01/2021 PREOPERATIVE DIAGNOSIS: Screening colonoscopy and epigastric abdominal pain. POSTOPERATIVE DIAGNOSES: Reflux esophagitis, duodenal ulcer, normal colon and gastric polyps. PROCEDURE: EGD with biopsies, colonoscopy. SURGEON: Cecilio Erazo DO ANESTHESIA: Per MDA. ESTIMATED BLOOD LOSS: None. COMPLICATIONS: None. INDICATIONS: The patient is a 71-year-old female, who has been having epigastric abdominal pain. She is also due for screening colonoscopy. She understands risks and benefits of procedures and wishes to proceed. Consent was signed in the chart. DESCRIPTION OF PROCEDURE: The patient was taken to the endoscopy suite, placed in left lateral recumbent position. Timeout was performed. Scope was inserted in mouth, down the esophagus, stomach and into the duodenum without difficulty. Second portion of duodenum with normal appearance. First portion right after the pylorus with a small ulcer and biopsy of this area was obtained. Scope was then slowly retracted back to stomach where it was further insufflated. Biopsy of the antrum was obtained. No polyps, masses or ulcerations. Some small benign-appearing polyps present. Scope was retroflexed noting no other pathology. Also noting a small hiatal hernia. Scope was returned to its normal position, slowly withdrawn to distal esophagus, slight changes of reflux esophagitis present. No polyps, masses or ulcerations at the GE junction, but changes of reflux esophagitis present. Biopsy of the GE junction was obtained. Scope was slowly retracted back to completely removing noting no other pathology. Digital rectal exam was performed. No palpable polyps, masses or ulcerations. Scope was inserted in the rectum and advanced all the way to cecum with minimal difficulty. Prep was adequate. Scope was then slowly retracted back. No polyps, masses or ulcerations in the cecum, ascending, transverse, descending and sigmoid colon. Once in the rectum, scope was retroflexed noting no other pathology. Scope was returned to its normal position, slowly withdrawn until completely removed. The patient tolerated the procedure well without any complications. She was taken to recovery room in stable condition. RECOMMENDATIONS: The patient currently on tramadol, would stop this due to the ulcer. We will start her on Protonix 40 mg daily and Carafate 1 gram four times a day. We would recommend repeat endoscopy to make sure this has been eradicated in about 6 to 8 weeks. The patient will follow up in 2 weeks to discuss pathology results. The patient will need repeat colonoscopy on an as needed basis due to age. If she has any issues before that or if she has any symptoms, she should be reevaluated at that time. Job ID: [id number] DocumentID: [id number] Dictated Date: 12/01/2021 15:55:41 Stage Producer Date: 12/01/2021 23:47:44 Dictated By: CECILIO ERAZO DO
== END 2021-12-01 15:00 | disposition home or self-care (01) ==
LOC: SDC 12:37 → ENDO 15:00
PROVIDERS: ATTEND Surgery
DX: Z12.11 Encounter for screening for malignant neoplasm of colon (principal); K21.00 Gastro-esophageal reflux disease with esophagitis, without bleeding; K26.9 Duodenal ulcer, unspecified as acute or chronic, without hemorrhage or perforation; K31.7 Polyp of stomach and duodenum; K44.9 Diaphragmatic hernia without obstruction or gangrene; K29.70 Gastritis, unspecified, without bleeding; Z28.310 Unvaccinated for COVID-19
CPT/HCPCS: 43239; G0121

== ENCOUNTER → 2022-03-14 | Outpatient (CLI) | payer MEDICARE, MEDICAID ==
[~2022-03-14] VITALS: Ht 166.4 cm; Wt 53.5 kg
[~2022-03-14] MED LIST changes: +SUCR1TAB36 PO
== END | disposition home or self-care (01) ==
LOC: PREOP 05:58
PROVIDERS: ATTEND Surgery
DX: Z01.818 Encounter for other preprocedural examination (principal)

== ENCOUNTER 2022-04-24 07:28 | Day surgery (SDC) | payer MEDICARE, MEDICAID ==
[~2022-04-24] VITALS: Ht 166.4 cm; Wt 53.5 kg
[2022-04-24] MEDS ORDERED: LACTATED RINGERS 1,000 ML IV STA (07:41)
[2022-04-24] MEDS ORDERED: HURRICAINE EXT TUBE (BENZOCAINE) XX PRN (07:45)
[2022-04-24 07:53] VITALS: BP 135/77
--- NOTE | 2022-04-24 08:33 | Progress Note-Post Operative ---
Post-Operative Progess Note Surgeon (s)/Brim Stitcher (s) Surgeon CECILIO CARRILLO DO Brim Stitcher: na Pre-Operative Diagnosis H/o duodenal ucler; 3 month f/u Post-Operative Diagnosis schatzki ring, small hiatal hernia Procedure & Operative Findings Date of Procedure 04/24/22 Procedure Performed/Findings EGD with biopsies Anesthesia Type per air traffic systems technician Estimated Blood Loss Estimated blood loss (mL): none Specimens/Packing Specimens Removed GE biopsy x2 CECILIO CARRILLO DO Apr 24, 2022 08:33
[2022-04-24] MEDS ORDERED: PANT40TA2 PO ×2 (08:36→08:37)
--- NOTE | 2022-04-24 08:36 | Discharge Inst-Simple/Standard ---
Discharge Inst-Standard Discharge Medications New, Converted or Re-Newed RX: Transmitted to Pharmacy Patient Instructions/Follow Up Plan of Care/Instructions/FU: 2 week [place] Activity as Tolerated: Yes Discharge Diet: Regular Diet CECILIO CARRILLO DO Apr 24, 2022 08:36
[2022-04-24 08:37] VITALS: BP 107/57
[2022-04-24 08:42] VITALS: BP 112/60
[2022-04-24 08:47] VITALS: BP 138/63
[2022-04-24 08:55] VITALS: BP 125/58
[2022-04-24 09:20] VITALS: BP 125/58
--- NOTE | 2022-04-24 11:45 | Anesthesia-General Post-Op ---
MAC Patient Condition Mental Status/LOC: Same as Preop Cardiovascular: Satisfactory Nausea/Vomiting: Absent Respiratory: Satisfactory Pain: Controlled Complications: Absent Post Op Complications Complications None Follow Up Care/Instructions Patient Instructions None needed. Anesthesiology Discharge Order Discharge Order Patient is doing well, no complaints, stable vital signs, no apparent adverse anesthesia problems. No complications reported per nursing. ADRIEL CARDONA CRNA Apr 24, 2022 11:45
--- NOTE | 2022-04-24 13:01 | OPERATIVE REPORT ---
DATE OF SERVICE: 04/24/2022 PREOPERATIVE DIAGNOSIS: History of duodenal ulcer. POSTOPERATIVE DIAGNOSES: Small hiatal hernia, Schatzki's ring. PROCEDURE: EGD with biopsy. SURGEON: Cecilio Erazo DO ANESTHESIA: Per NEWS GATHERING TECHNICIAN. ESTIMATED BLOOD LOSS: None. COMPLICATIONS: None. INDICATIONS: The patient is a 72-year-old female with history of duodenal ulcer. She understands risks and benefits of procedure and wishes to proceed. Consent was signed in chart. DESCRIPTION OF PROCEDURE: The patient was taken to endoscopy suite, placed in left lateral recumbent position. Timeout was performed. Scope was inserted in the mouth, down the esophagus, stomach and the duodenum without difficulty. No polyps, masses or ulcerations within the duodenum. Scope was retracted back in the stomach where it was further insufflated. No polyps, masses or ulcerations within the stomach. Scope was retroflexed noting a small hiatal hernia, no other pathology. Scope was returned to its normal position, slowly withdrawn until distal esophagus, Schatzki's ring at the GE junction present. Two biopsies of the Schatzki's ring and GE junction were obtained. Scope was slowly retracted back until completely removed and sent to pathology. The patient tolerated the procedure well without complications, taken to recovery room in stable condition. RECOMMENDATIONS: The patient will continue on Protonix 40 mg daily. She will follow up in the office in 2 weeks to discuss symptoms and go over pathology. Job ID: [id number] DocumentID: [id number] Dictated Date: 04/24/2022 08:39:39 Feed Weigher Date: 04/24/2022 12:59:00 Dictated By: CECILIO ERAZO DO
== END 2022-04-24 09:27 | disposition home or self-care (01) ==
LOC: ENDO 07:28
PROVIDERS: ATTEND Surgery
DX: K22.2 Esophageal obstruction (principal); K21.00 Gastro-esophageal reflux disease with esophagitis, without bleeding; K44.9 Diaphragmatic hernia without obstruction or gangrene; Z87.11 Personal history of peptic ulcer disease
CPT/HCPCS: 88305

== ENCOUNTER → 2022-06-13 | Outpatient (CLI) | payer MEDICARE, MEDICAID | LOC: LAB 12:08 | PROVIDERS: ATTEND Family Medicine | DX: R07.9 Chest pain, unspecified (principal) | CPT/HCPCS: 36415; 84484 ==

== ENCOUNTER → 2022-06-14 | Outpatient (CLI) | payer MEDICARE, MEDICAID ==
[2022-06-14 08:10] LABS: BASOPHILS % (AUTO) 0 % (0-10); EOSINOPHILS # (AUTO) 0.1 10^3/uL (0.0-0.3); EOSINOPHILS % (AUTO) 1 % (0-10); HEMATOCRIT 43 % (35-52); HEMOGLOBIN 14.9 g/dL (11.5-16.0); LYMPHOCYTES # (AUTO) 2.6 10^3/uL (1.0-4.0); LYMPHOCYTES % (AUTO) 42 % (12-44); MEAN CORPUSCULAR HEMOGLOBIN 32 pg (25-34); MEAN CORPUSCULAR HGB CONC 35 g/dL (32-36); MEAN CORPUSCULAR VOLUME 91 fL (80-99); MEAN PLATELET VOLUME 10.2 fL (9.0-12.2); MONOCYTES # (AUTO) 0.4 10^3/uL (0.0-1.0); MONOCYTES % (AUTO) 7 % (0-12); NEUTROPHILS # (AUTO) 3.1 10^3/uL (1.8-7.8); NEUTROPHILS % (AUTO) 49 % (42-75); PLATELET COUNT 185 10^3/uL (130-400); WHITE BLOOD COUNT 6.2 10^3/uL (4.3-11.0)
[2022-06-14 08:25] LABS: ALBUMIN 4.5 GM/DL (3.2-4.5); POTASSIUM 4.3 MMOL/L (3.6-5.0)
[2022-06-14 08:26] LABS: CALCIUM 9.7 MG/DL (8.5-10.1)
[2022-06-14 08:27] LABS: TOTAL PROTEIN 7.3 GM/DL (6.4-8.2)
[2022-06-14 08:29] LABS: BILIRUBIN,TOTAL 1.4 MG/DL (0.1-1.0)
[2022-06-14 08:31] LABS: CREATININE SERUM 0.92 MG/DL (0.60-1.30)
== END ==
LOC: LAB 07:55
PROVIDERS: ATTEND Family Medicine
DX: R07.9 Chest pain, unspecified (principal)
CPT/HCPCS: 36415; 80053; 80061; 85025

== ENCOUNTER → 2022-07-20 | Outpatient (CLI) | payer MEDICARE, MEDICAID ==
--- NOTE | 2022-07-20 10:27 | Diagnostic Imaging Report ---
Indication: Routine screening. No prior mammograms are available for comparison. 2-D and 3-D bilateral screening mammography was performed with CAD. Both breasts are heterogeneously dense, limiting the sensitivity of mammography. No dominant mass is identified. There are numerous punctate opacities in the left axilla, suspicious for microcalcifications. It is possible this could represent deodorant artifact, as well. Additional views are recommended. Right axilla is unremarkable. IMPRESSION: BI-RADS Category 0 Calcifications in the upper left breast in the region of the axillary tail. Additional views are recommended for further evaluation. ACR BI-RADS Category 0: Incomplete. (Needs additional imaging evaluation). Result letter will be mailed to the patient. Note: At least 10% of breast cancer is not imaged by mammography. Dictated by: Dictated on workstation # [id number]
== END ==
LOC: RAD 07:37
PROVIDERS: ATTEND Family Medicine
DX: Z12.31 Encounter for screening mammogram for malignant neoplasm of breast (principal); R92.1 Mammographic calcification found on diagnostic imaging of breast
CPT/HCPCS: 77063; 77067

== ENCOUNTER → 2022-08-03 | Outpatient (CLI) | payer MEDICARE, MEDICAID ==
--- NOTE | 2022-08-03 14:38 | Diagnostic Imaging Report ---
INDICATION: Left breast calcifications. Patient presents for additional views. Correlation is made with the screening study from 07/20/2022. Unilateral left 2-D and 3-D diagnostic mammography was performed. This included exaggerated CC, magnification exaggerated CC, conventional 90 degrees lateral as well as magnification 90 degrees lateral views. Additional views show persistent suspicious area of microcalcifications in the upper and outer aspect of the left breast at posterior depth. Findings are concerning for DCIS. No associated soft tissue mass is identified. IMPRESSION: There is a moderate-sized area of suspicious microcalcifications in the upper outer left breast posterior depth, concerning for DCIS. Tissue sampling is recommended. These would be amenable to stereotactic biopsy approach. Dictated by: Dictated on workstation # [id number]
== END ==
LOC: RAD 13:24
PROVIDERS: ATTEND Family Medicine
DX: R92.8 Other abnormal and inconclusive findings on diagnostic imaging of breast (principal)
CPT/HCPCS: 77065; G0279

== ENCOUNTER → 2022-08-10 | Outpatient (CLI) | payer MEDICARE, MEDICAID ==
[~2022-08-10] VITALS: Ht 167.6 cm; Wt 54.5 kg
[~2022-08-10] MED LIST changes: +LIDOCAINE 1% INJ 10 ML VIAL INJ ONE; +LIDOCAINE 1% INJ 10 ML VIAL ONE
--- NOTE | 2022-08-10 15:01 | Diagnostic Imaging Report ---
IndicATION: Left breast calcifications. The patient presents for a stereotactic biopsy. The patient was brought to the mammographic suite and placed in a chair in the sitting upright position. The left breast was positioned craniocaudal. The suspicious microcalcifications in the upper outer aspect of the left breast were stereotactically targeted. All images were viewed on a dedicated workstation. The superior left breast was then prepped and draped in the usual sterile fashion. A small amount of 1% lidocaine was utilized for local anesthesia. A 10-gauge vacuum-assisted needle was advanced and placed per stereotactic coordinates. A total of 4 core biopsies were obtained with the vacuum-assisted device. Specimen radiograph was obtained demonstrating numerous microcalcifications in all 4 samples. A marker clip was then unemployed. The needle was removed and hemostasis was obtained. Postprocedure 2-D exaggerated CC and MLO mammogram was obtained demonstrating a marker clip in the upper and outer left breast. The patient tolerated the procedure well and left the department in stable condition. IMPRESSION: Successful stereotactic biopsy of the calcifications in the upper outer left breast posterior depth utilizing the vacuum-assisted device. Pathology results are currently pending. Dictated by: Dictated on workstation # [id number]
== END ==
LOC: RAD 09:47
PROVIDERS: ATTEND Family Medicine
DX: R92.0 Mammographic microcalcification found on diagnostic imaging of breast (principal)
CPT/HCPCS: 19081; A4648 ×2

== ENCOUNTER → 2022-09-17 | Outpatient (CLI) | payer MEDICARE, MEDICAID ==
[~2022-09-17] MED LIST changes: -LIDOCAINE 1% INJ 10 ML VIAL INJ ONE; -LIDOCAINE 1% INJ 10 ML VIAL ONE
--- NOTE | 2022-09-17 10:53 | Diagnostic Imaging Report ---
INDICATION: Lumbar radiculopathy, pain. COMPARISON: 10/05/2021 TECHNIQUE: Single radiograph of the pelvis dated 09/17/2022 FINDINGS: Gbnp-oj-ejollzsy degenerative changes noted within the lower lumbar spine. The sacroiliac joints are intact. Mild degenerative changes involving the pubic symphysis. No acute fracture or dislocation. No destructive osseous process. Minimal joint space narrowing of the bilateral hips. No suspicious radiopaque foreign body. IMPRESSION: No acute osseous abnormality with scattered degenerative changes, greatest involving the partially evaluated lower lumbar spine. Dictated by: Dictated on workstation # [id number]
--- NOTE | 2022-09-17 10:58 | Diagnostic Imaging Report ---
INDICATION: Lumbar radiculopathy, pain. COMPARISON: 06/28/[address] dated 10/05/2021. TECHNIQUE: Five radiographs of the lumbar spine were obtained including flexion and extension views dated 09/17/2022. FINDINGS: Five lumbar type vertebral bodies are present. Grade 1 anterolisthesis measuring 4 to 5 mm is identified at L5 on S1, appearing similar to the prior examination. No abnormal translational motion at this level with flexion and extension. This anterolisthesis is secondary to bilateral pars interarticularis defects of L5. No additional anterolisthesis or retrolisthesis. Vertebral body heights are well-maintained. Moderate disc space height loss at L5/S1 with minimal anterior osteophyte formation. Disc space heights are otherwise well-maintained. No acute fracture or dislocation. Low-grade facet joint degenerative changes, greatest within the lower lumbar spine. Surgical clips in the right upper abdomen. IMPRESSION: No acute osseous abnormality with mild to moderate degenerative changes, greatest at L5/S1. Stable grade 1 anterolisthesis of L5 on S1 secondary to bilateral pars interarticularis defects of L5 without abnormal translational motion. Dictated by: Dictated on workstation # [id number]
== END ==
LOC: RAD 09:33
PROVIDERS: ATTEND Registered Nurse
DX: M47.27 Other spondylosis with radiculopathy, lumbosacral region (principal)
CPT/HCPCS: 72110; 72170

== ENCOUNTER 2022-09-30 12:36 | Emergency (ER) | payer MEDICARE, MEDICAID ==
[~2022-09-30] VITALS: Ht 165 cm; Wt 56.0 kg
--- NOTE | 2022-09-30 12:54 | ED Back Pain ---
General Chief Complaint: Back Problems Stated Complaint: LOWER BACK PAIN Source of Information: Patient Exam Limitations: No Limitations History of Present Illness Date Seen by Provider: Sep 30, 2022 Time Seen by Provider: 12:51 Initial Comments Patient is a 72-year-old female who presents to ED left lower back pain. History of back pain in the past. She is scheduled to get a SI joint injection this week. Patient states pain described as sharp. Pain became worse this morning when she woke up. Pain is worse when she stands she gets relief when she pulls her knees closer to her chest. Pain is worse with any type of movement. No radiating pain. Denies pain with urination, frequent urination, bloody urine, abdominal pain, vomiting, diarrhea. She denies any fall. She does see a chiropractor for history of back pain. No distal numbness and tingling in the lower extremities, bowel or urine incontinence or saddle paresthesia. She took Tylenol at home without much improvement. Allergies and Home Medications Allergies Coded Allergies: No Known Drug Allergies (Unverified , 02/02/15) Patient Home Medication List Home Medication List Reviewed: Yes Oxycodone HCl/Acetaminophen (Oxycodone-Acetaminophen 5-325) 5 Mg-325 Mg Tablet, 1 EACH PO Q4H PRN for PAIN-SEVERE Prescribed by: YOLY BEST on 09/30/22 1453 Pantoprazole Sodium (Protonix) 40 Mg Tablet.dr, 40 MG PO DAILY Prescribed by: CECILIO CARRILLO on 04/24/22 0837 Review of Systems Constitutional: No chills, No diaphoresis, No weakness EENTM: No hearing loss, No blurred vision Respiratory: No cough, No dyspnea on exertion, No short of breath, No wheezing Cardiovascular: No chest pain, No edema Gastrointestinal: No abdominal pain, No diarrhea, No nausea, No vomiting Genitourinary: No decreased output, No discharge Musculoskeletal: back pain, joint pain; No joint swelling; muscle pain, muscle stiffness Skin: No change in color, No change in hair/nails All Other Systems Reviewed Negative Unless Noted: Yes Past Ixnlmfv-Nsmupb-Lsiiij Hx Immunizations Up To Date First/Initial COVID19 Vaccinat: NONE Second COVID19 Vaccination Huy: NONE Third COVID19 Vaccination Date: NONE Seasonal Allergies Seasonal Allergies: No Past Medical History Surgeries: Yes (cyst from arm, oral sx;BILATERAL CATARACT SURGERY) Eye Surgery, Gallbladder Respiratory: No Currently Using CPAP: No Cardiac: No 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 oz. 56.632298ql; 19.40 BMI Method:Stated General Appearance: No Apparent Distress, WD/WN HEENT: PERRL/EOMI, TMs Normal, Normal ENT Inspection, Pharynx Normal Neck: Full Range of Motion, Normal Inspection, Non Tender, Supple Cardiovascular: Regular Rate, Rhythm, No Edema, No Gallop Respiratory: Chest Non Tender, Lungs Clear, Normal Breath Sounds, No Accessory Muscle Use Gastrointestinal: Normal Bowel Sounds, No Organomegaly, No Pulsatile Mass, Non Tender Back: Other (Left SI joint tenderness, left lower lumbar paraspinal muscle tenderness. Pain with flexion.) Extremity: Normal Capillary Refill, Normal Inspection, Normal Range of Motion, Non Tender Neurologic/Psychiatric: Alert, Oriented x3, No Motor/Sensory Deficits, Normal Mood/Affect Skin: Normal Color, Warm/Dry Progress/Results/Core Measures Results/Orders Lab Results Laboratory Tests Test 09/30/22 12:45 Range/Units Urine Color YELLOW Urine Clarity CLEAR Urine pH 7.0 5-9 Urine Specific [place] 1.010 L 1.016-1.022 Urine Protein NEGATIVE NEGATIVE Urine Glucose (UA) NEGATIVE NEGATIVE Urine Ketones NEGATIVE NEGATIVE Urine Nitrite NEGATIVE NEGATIVE Urine Bilirubin NEGATIVE NEGATIVE Urine Urobilinogen 0.2 < = 1.0 MG/DL Urine Leukocyte Esterase NEGATIVE NEGATIVE Urine RBC (Auto) NEGATIVE NEGATIVE Urine RBC NONE /HPF Urine WBC NONE /HPF Urine Squamous Epithelial Cells RARE /HPF Urine Crystals NONE /LPF Urine Bacteria TRACE /HPF Urine Casts NONE /LPF Urine Mucus NEGATIVE /LPF Urine Culture Indicated NO My Orders Orders - JAYDA HOWARD Ua Culture If Indicated (09/30/22 12:44) Ketorolac Injection (Ketorolac Injection (09/30/22 13:00) Orphenadrine Inj (Ed Only) (Norflex Inje (09/30/22 13:00) Hydrocodone/Apap 5/325 Tablet (Hydrocod (09/30/22 13:00) Fentanyl Injection (Fentanyl Injection (09/30/22 13:36) Ct Lumbar Spine Wo (09/30/22 14:16) Morphine Injection (Morphine Injection (09/30/22 15:00) Medications Given in ED Current Medications Medications Dose Ordered Sig/Champ Route Start Time Stop Time Status Last Admin Dose Admin Acetaminophen/ Hydrocodone Bitart 1 ea ONCE ONCE PO 09/30/22 13:00 09/30/22 13:01 DC 09/30/22 13:01 1 EA Ketorolac Tromethamine 30 mg ONCE ONCE IM 09/30/22 13:00 09/30/22 13:01 DC 09/30/22 13:01 30 MG Morphine Sulfate 4 mg ONCE ONCE IM 09/30/22 15:00 09/30/22 15:01 DC 09/30/22 15:05 4 MG Orphenadrine Citrate 60 mg ONCE ONCE IM 09/30/22 13:00 09/30/22 13:01 DC 09/30/22 13:00 60 MG Vital Signs/I&O 09/30/22 09/30/22 09/30/22 09/30/22 12:48 13:01 13:01 13:43 Temp 36.5 36.5 36.5 36.5 Pulse 100 Resp 24 B/P (MAP) 133/119 (124) Pulse Ox 100 O2 Delivery Room Air 09/30/22 15:05 Temp 36.5 Departure Communication (PCP) Reviewed previous ER visits, H&P, lab testing. Differential diagnosis SI joint dysfunction, lumbar radiculopathy, lumbar sacral strain, nephrolithiasis, UTI . patient with a history of low back pain. Patient had a pelvis x-ray on September 17. Did note some mild degenerative changes in the SI joint. No acute fractures. She is scheduled for an SI joint injection this . Patient woke up with severe pain to her left lower back and left SI. She denies any falls. Mild to moderate distress on arrival. She took Tylenol without much improvement. She states every time she walks it is unbearable and worst. She denies of any bowel or urine incontinence or saddle paresthesia, lower extremity weakness or sensory changes. She does have a history of chronic low back pain. On exam she is tenderness to the left SI, left lumbar paraspinal muscle. Pain with any type of movement. Urinalysis was ordered secondary to location of pain which was negative for infection or hematuria. Unlikely nephrolithiasis. She did receive Toradol, Norflex and a dose of hydrocodone. After an hour patient was reporting worsening pain. Did give a IM injection of fentanyl and eventually morphine which seemed to improve some however she states she still continue having pain which appears to only occur when she stands and walks. Discussed with patient that she would likely benefit with intra-articular injection of the left SI joint as this appears to be associated of her pain. She was requesting imaging of her lumbar spine as she thought she may have fractured something however she did not fall. Due to her pain CT scan the lumbar spine was ordered which did no t note any acute abnormality. Chronic findings were discussed. she has no neurological red flag findings suggesting emergent MRI. I suspect this is likely SI joint dysfunction. Discussed with patient that the pain medication is only a temporary fix. Suggest contacting orthopedic tomorrow for a earlier visit. Recommend rest, stretching. We will provide a few days worth of pain medication. Recommend anti-inflammatories. If any worsening symptoms return back to ED. did offer muscle relaxers. She Refused. Discussed lidocaine patches. Impression Primary Impression: Low back pain Disposition: HOME, SELF-CARE Condition: Stable Departure-Patient Inst. Decision time for Depature: 13:47 Referrals: LEÓN JHA DO (PCP/Family) Primary Care Physician CHRISTIAN MATA MD Patient Instructions: Low back pain in adults Scripts Oxycodone HCl/Acetaminophen (Oxycodone-Acetaminophen 5-325) 5 Mg-325 Mg Tablet 1 EACH PO Q4H PRN for PAIN-SEVERE MDD 6, #8 TAB Prov: JAYDA HOWARD 09/30/22 JAYDA HOWARD Sep 30, 2022 12:54
[2022-09-30] MEDS ORDERED: ORPHENADRINE 60 MG/2 ML (NORFLEX) AMP (ED ONLY) IM ONE (13:00)
[2022-09-30] MEDS ORDERED: HYDROcodone/ACETAMINOPHEN 5 MG/325 MG TABLET PO ONE (13:00)
[2022-09-30] MEDS ORDERED: KETOROLAC INJ 30 MG/ML VIAL IM ONE (13:00)
[2022-09-30 13:08] LABS: BACTERIA,URINE TRACE /HPF; BILIRUBIN,URINE NEGATIVE (NEGATIVE); CLARITY,URINE CLEAR; COLOR,URINE YELLOW; GLUCOSE, URINE (UA) NEGATIVE (NEGATIVE); KETONES,URINE NEGATIVE (NEGATIVE); LEUKOCYTE ESTERASE ,URINE NEGATIVE (NEGATIVE); NITRITE,URINE NEGATIVE (NEGATIVE); PROTEIN,URINE NEGATIVE (NEGATIVE); SQUAMOUS EPITHELIAL CELL,UR RARE /HPF
[2022-09-30] MEDS ORDERED: fentaNYL INJECTION 100 MCG/2 ML VIAL IM STA (13:36)
--- NOTE | 2022-09-30 14:37 | Diagnostic Imaging Report ---
PROCEDURE: CT lumbar spine without contrast. TECHNIQUE: Multiple contiguous axial images were obtained through the lumbar spine without the use of intravenous contrast. Sagittal and coronal reformations were then performed. Auto Exposure Controls were utilized during the CT exam to meet ALARA standards for radiation dose reduction. INDICATION: 72-year-old female, lower back pain extending into left leg. CORRELATION STUDY: Radiograph 09/17/2022 FINDINGS: Nonacute bilateral pars articularis defect at L5 level. There is a grade 1 spondylolisthesis of L5 on S1 appearing relatively stable from prior. Remainder of the alignment otherwise anatomic. Lumbar vertebral body heights are maintained. At L5-S1 level with the spondylolisthesis, there is disc osteophyte formation which results in marked bilateral foraminal narrowing with flattening the exiting nerve roots. Spinal canal without significant stenosis. L4-L5 level with mild ligamentum hypertrophy. No canal or foraminal narrowing. L3-L4 level with mild loss of disc space height. Mild disc bulging with mild left foraminal narrowing abutting the exiting nerve root. The right foramen is maintained. No high degree canal stenosis. L2-L3 and L1-L2 levels are unremarkable. Likely cholecystectomy clips. IMPRESSION: 1. Negative acute abnormality about the lumbar spine. 2. Nonacute pars articularis defect L5 level with grade 1 spondylolisthesis. Resultant disc bulge results in marked bilateral foraminal narrowing. 3. Asymmetric disc bulge indents the left foraminal L3-L4 level with moderate foraminal stenosis and abutment of the exiting nerve root. Dictated by: Dictated on workstation # [id number]
[2022-09-30] MEDS ORDERED: OXYC1TAB11 PO (14:52)
[2022-09-30] MEDS ORDERED: morphine INJ 10 MG/ML 1ML (SYR OR VIAL) IM ONE (15:00)
[2022-09-30 15:23] VITALS: BP 145/113
[2022-10-01] MEDS ORDERED: PRD20T PO (19:36)
== END 2022-09-30 15:18 | disposition home or self-care (01) ==
LOC: EDUNIT# 12:36 → ER 12:38
DX: M54.50 Low back pain, unspecified (principal); M53.3 Sacrococcygeal disorders, not elsewhere classified; Z28.310 Unvaccinated for COVID-19
CPT/HCPCS: 72131; 81000

== ENCOUNTER 2022-10-01 19:00 | Emergency (ER) | payer MEDICARE, MEDICAID ==
[~2022-10-01] VITALS: Ht 165.1 cm; Wt 56.1 kg
[~2022-10-01 19:00] MED LIST changes: +OXYC1TAB11 PO
--- NOTE | 2022-10-01 19:06 | ED Back Pain ---
General Stated Complaint: LOW BACK PAIN Source of Information: Patient Exam Limitations: No Limitations Allergies and Home Medications Allergies Coded Allergies: No Known Drug Allergies (Unverified , 02/02/15) Patient Home Medication List Oxycodone HCl/Acetaminophen (Oxycodone-Acetaminophen 5-325) 5 Mg-325 Mg Tablet, 1 EACH PO Q4H PRN for PAIN-SEVERE Prescribed by: YOLY BEST on 09/30/22 1453 Pantoprazole Sodium (Protonix) 40 Mg Tablet.dr, 40 MG PO DAILY Prescribed by: CECILIO CARRILLO on 04/24/22 0837 Past Jcorszn-Zfxcqg-Lwrqop Hx Immunizations Up To Date First/Initial COVID19 Vaccinat: NONE Second COVID19 Vaccination Huy: NONE Third COVID19 Vaccination Date: NONE Seasonal Allergies Seasonal Allergies: No Past Medical History Surgery/Hospitalization HX: [facility] Surgeries: Yes (cyst from arm, oral sx;BILATERAL CATARACT SURGERY) Eye Surgery, Gallbladder Respiratory: No Currently Using CPAP: No Cardiac: No 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 oz. 56.771470zq; 20.00 BMI Method:Stated Departure Departure-Patient Inst. Referrals: LEÓN JHA DO (PCP/Family) Primary Care Physician TRAMAINE KRAMER MD Oct 01, 2022 19:06
--- NOTE | 2022-10-01 19:27 | ED Back Pain ---
General Chief Complaint: Back Problems Stated Complaint: LOW BACK PAIN Nursing Triage Note: PATIENT STATES THAT SHE WAS SEEN HERE LAST NIGHT FOR LOWER BACK PAIN. SHE STATES SHE WAS GIVEN PAIN MEDICATION AND ALSO SENT HOME WITH PO PAIN MEDS AND THAT THEY HAVE NOT HELPED AND HAVE MADE HER SICK. SHE ALSO STATES THAT SHE SEES AN ORTHO SX WHO COMES TO [facility] FROM [address] [facility] ON THUR[place], BUT SHE IS UNABLE TO WAIT THAT LONG FOR PAIN RELIEF. SHE HAS CHRONIC BACK ISSUES, BUT THIS FLAIR-UP HAS BEEN GOING ON FOR A WEEK. Source of Information: Patient Exam Limitations: No Limitations History of Present Illness Date Seen by Provider: Oct 01, 2022 Time Seen by Provider: 19:24 Initial Comments Patient is a 72-year-old female who presents ED with left SI joint pain. Patient was seen here yesterday received IM pain medication with some improvement. She was discharged with oxycodone which she said that the medications make her sick. She has a scheduled follow-up with an orthopedic on for a SI joint injections. She states she cannot make it to her appointment and is still having continued pain. She denies abdominal pain fever, chills, nausea, vomiting, diarrhea, dysuria, hematuria. History of chronic low back pain. She denies of any bowel or urine incontinence, saddle paresthesia, lower extremity weakness or sensory changes. She did receive a CT scan of her lumbar spine which did not note any acute abnormality. Her urinalysis yesterday was negative for hematuria or infection. Allergies and Home Medications Allergies Coded Allergies: No Known Drug Allergies (Unverified , 02/02/15) Patient Home Medication List Home Medication List Reviewed: Yes Oxycodone HCl/Acetaminophen (Oxycodone-Acetaminophen 5-325) 5 Mg-325 Mg Tablet, 1 EACH PO Q4H PRN for PAIN-SEVERE Prescribed by: YOLY BEST on 09/30/22 1453 Pantoprazole Sodium (Protonix) 40 Mg Tablet.dr, 40 MG PO DAILY Prescribed by: CECILIO CARRILLO on 04/24/22 0837 Prednisone (Prednisone) 20 Mg Tab, 40 MG PO DAILY Prescribed by: YOLY BEST on 10/01/22 1936 Review of Systems Constitutional: No chills, No diaphoresis EENTM: No hearing loss, No blurred vision Respiratory: No dyspnea on exertion Cardiovascular: No chest pain Gastrointestinal: No abdominal pain, No diarrhea, No nausea, No vomiting Genitourinary: No decreased output, No discharge Musculoskeletal: back pain, joint pain, muscle pain Skin: No change in color, No change in hair/nails All Other Systems Reviewed Negative Unless Noted: Yes Past Uwcndbz-Ywdksk-Ypkoqf Hx Immunizations Up To Date First/Initial COVID19 Vaccinat: NONE Second COVID19 Vaccination Huy: NONE Third COVID19 Vaccination Date: NONE Seasonal Allergies Seasonal Allergies: No Past Medical History Surgery/Hospitalization HX: [facility] Surgeries: Yes (cyst from arm, oral sx;BILATERAL CATARACT SURGERY) Eye Surgery, Gallbladder Respiratory: No Currently Using CPAP: No Cardiac: No 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 oz. 56.088566zg; 20.00 BMI Method:Stated General Appearance: No Apparent Distress, WD/WN HEENT: PERRL/EOMI, TMs Normal, Normal ENT Inspection, Pharynx Normal Neck: Full Range of Motion, Normal Inspection, Non Tender, Supple Cardiovascular: Regular Rate, Rhythm, No Edema, No Gallop, No JVD Respiratory: Chest Non Tender, Lungs Clear, Normal Breath Sounds, No Accessory Muscle Use Gastrointestinal: Normal Bowel Sounds, No Organomegaly Back: Normal Inspection, No CVA Tenderness, Other (Left SI joint tenderness. No thoracic or lumbar midline tenderness. Normal active range of motion of lower extremities) Extremity: Normal Capillary Refill, Normal Inspection, Normal Range of Motion Neurologic/Psychiatric: Alert, Oriented x3, No Motor/Sensory Deficits, Normal Mood/Affect, audit reviewer II-XII Norm as Tested Progress/Results/Core Measures Results/Orders My Orders Orders - JAYDA HOWARD Ketorolac Injection (Ketorolac Injection (10/01/22 19:30) Prednisone Tablet (Deltasone Tablet) (10/01/22 19:45) Medications Given in ED Current Medications Medications Dose Ordered Sig/Champ Route Start Time Stop Time Status Last Admin Dose Admin Ketorolac Tromethamine 30 mg ONCE ONCE IM 10/01/22 19:30 10/01/22 19:31 DC 10/01/22 19:29 30 MG Prednisone 50 mg ONCE ONCE PO 10/01/22 19:45 10/01/22 19:46 DC 10/01/22 19:42 50 MG Vital Signs/I&O 10/01/22 19:07 Temp 37.2 Pulse 112 Resp 20 B/P (MAP) 148/83 (104) Pulse Ox 99 O2 Delivery Room Air Blood Pressure Mean: 104 Departure Communication (PCP) Reviewed previous ER visits, H&P, lab testing. Differential diagnosis lumbar sacral strain, SI joint dysfunction. Patient Was seen here yesterday for similar type pain. She received IM fentanyl and morphine with some improvement of pain. She had a CT scan of her lumbar spine which did not note any acute abnormalities and noted chronic findings.. She has no neurological red flag findings such as bowel or urine incontinence or saddle paresthesia requesting emergent imaging. Her urinalysis was unremarkable. She is tender to palpate the left SI joint. Neurovascular intact distally. She was discharged with oxycodone which she states the medication is making her sick. I personally saw patient yesterday as well. Discussed with patient that the pain medication is only a temporary fix. She is scheduled to have a SI joint injection this at [facility]. She has had similar type pain in the past. She is requesting orthopedics to see her here in the ED. Discussed with patient that that typically does not happen for a case like this. Typically they follow-up outpatient to receive the injection. Usually is ultrasound-guided in the office. She appears frustrated. I discussed I will give her a IM dose of Toradol here. She has been on steroids in the past without much improvement. Discussed providing a short burst steroids until her SI joint injection on . Did offer other orthopedics who she may be able to follow-up prior to her appointment. Patient has a steady gait here in the ED. No flank tenderness or abdominal tenderness on exam. She does not appear toxic or septic. I will not prescribe narcotics at this time. Recommend eating with pain medication. Follow-up with your appointment. Return precaution were discussed. Patient was on prednisone a week and a half ago. Has not been on prednisone since. Impression Primary Impression: SI (sacroiliac) joint dysfunction Disposition: HOME, SELF-CARE Condition: Stable Departure-Patient Inst. Decision time for Depature: 19:26 Referrals: LEÓN JHA DO (PCP/Family) Primary Care Physician Patient Instructions: Low Back Pain (DC) Add. Discharge Instructions: Recommend contacting Dr. Obrien office tomorrow to see if you can be seen olman Phone number is [phone] All discharge instructions reviewed with patient and/or family. Voiced underst anding. Scripts Prednisone (Prednisone) 20 Mg Tab 40 MG PO DAILY for 4 Days, #8 TAB Prov: JAYDA HOWARD 10/01/22 JAYDA HOWARD Oct 01, 2022 19:27
[2022-10-01] MEDS ORDERED: KETOROLAC INJ 30 MG/ML VIAL IM ONE (19:30)
[2022-10-01] MEDS ORDERED: PRD20T PO (19:36)
[2022-10-01] MEDS ORDERED: predniSONE 20 MG TAB PO ONE (19:45)
[2022-10-01 19:46] VITALS: BP 143/76
== END 2022-10-01 19:56 | disposition home or self-care (01) ==
LOC: EDUNIT# 19:00 → ER 19:03
DX: M99.04 Segmental and somatic dysfunction of sacral region (principal); Z28.310 Unvaccinated for COVID-19
CPT/HCPCS: 99284

== ENCOUNTER 2022-10-10 05:39 | Emergency (ER) | payer MEDICARE, MEDICAID ==
[~2022-10-10] VITALS: Ht 165.1 cm; Wt 56.1 kg
[~2022-10-10 05:39] MED LIST changes: +PRD20T PO
--- NOTE | 2022-10-10 06:25 | ED Back Pain ---
General Chief Complaint: Back Problems Stated Complaint: LOW BACK PAIN Source of Information: Patient, Old Records Exam Limitations: No Limitations History of Present Illness Date Seen by Provider: Oct 10, 2022 Time Seen by Provider: 05:47 Initial Comments 72-year-old female with past medical history of low back pain coming in due to low back pain. This has been an issue for many years, worsening over the past couple weeks. This is her third visit to the ER in the past couple of weeks. She has had CT imaging and has seen both ER physicians and social media specialist. She had an injection in her SI joint 2 days ago which the orthopedist believes is the cause of the pain. She has an appointment with physical therapy in roughly 1 week. She has gone through different medications to try including Flexeril, hydrocodone, oxycodone, tramadol, and she states none of them really seem to help, and often they just make her sick. She denies any nausea, vomiting, fever, dysuria, true flank pain, hematuria, abdominal pain, chest pain, shortness of breath, weakness, numbness, bowel or bladder issues, or any other concerns. She states she has been ambulating without issue. Allergies and Home Medications Allergies Coded Allergies: No Known Drug Allergies (Unverified , 02/02/15) Patient Home Medication List Home Medication List Reviewed: Yes Oxycodone HCl/Acetaminophen (Oxycodone-Acetaminophen 5-325) 5 Mg-325 Mg Tablet, 1 EACH PO Q4H PRN for PAIN-SEVERE Prescribed by: YOLY BEST on 09/30/22 1453 Pantoprazole Sodium (Protonix) 40 Mg Tablet.dr, 40 MG PO DAILY Prescribed by: CECILIO CARRILLO on 04/24/22 0837 Prednisone (Prednisone) 20 Mg Tab, 40 MG PO DAILY Prescribed by: YOLY BEST on 10/01/22 1936 Review of Systems Constitutional: No fever EENTM: no symptoms reported Respiratory: no symptoms reported Cardiovascular: no symptoms reported Gastrointestinal: no symptoms reported Genitourinary: no symptoms reported Musculoskeletal: see HPI Skin: no symptoms reported Psychiatric/Neurological: No Symptoms Reported Past Mkeryny-Noqaey-Gpfggq Hx Patient Social History Tobacco Use?: No Substance use?: No Alcohol Use?: No Immunizations Up To Date First/Initial COVID19 Vaccinat: NONE Second COVID19 Vaccination Huy: NONE Third COVID19 Vaccination Date: NONE Seasonal Allergies Seasonal Allergies: No Past Medical History Surgery/Hospitalization HX: KACEY Surgeries: Yes (cyst from arm, oral sx;BILATERAL CATARACT SURGERY) Eye Surgery, Gallbladder Respiratory: No Currently Using CPAP: No Cardiac: No Neurological: 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 oz. 56.431327pg; 20.00 BMI Method:Stated General Appearance: No Apparent Distress, WD/WN HEENT: PERRL/EOMI, Normal ENT Inspection, Pharynx Normal Neck: Full Range of Motion, Normal Inspection, Non Tender, Supple Cardiovascular: Regular Rate, Rhythm, No Edema, Normal Peripheral Pulses Respiratory: Chest Non Tender, Lungs Clear, Normal Breath Sounds, No Accessory Muscle Use, No Respiratory Distress Gastrointestinal: Normal Bowel Sounds, Non Tender, Soft; No Distended, No Guarding Back: Normal Inspection, No CVA Tenderness, No Vertebral Tenderness, Other (Mostly left-sided SI joint discomfort and perispinal discomfort in her lower back) Extremity: Normal Capillary Refill, Normal Inspection, Normal Range of Motion, Non Tender, No Calf Tenderness, No Pedal Edema Neurologic/Psychiatric: Alert, No Motor/Sensory Deficits, Normal Mood/Affect, Other (Normal gait) Skin: Normal Color, Warm/Dry Progress/Results/Core Measures Results/Orders My Orders Orders - JAYDA SAMUEL MD Ketorolac Injection (Ketorolac Injection (10/10/22 06:30) Gabapentin Capsule (Gabapentin Capsule) (10/10/22 06:30) Acetaminophen Tablet (Acetaminophen Ta (10/10/22 06:30) Orphenadrine Inj (Ed Only) (Norflex Inje (10/10/22 06:30) Progress Progress Note : Progress Note 72-year-old female with above history coming in due to low back pain mostly over her SI joint. ABCs were intact and vitals were stable on presentation. She has no red flags on exam or history. I have reviewed her ED visits for the past couple of weeks. I reviewed the CT imaging she had done showing some disc bulging but no acute abnormality. She has seen an social media specialist who believes this is mostly targeted around the SI joint which she had an injection for her. Neuro exam completely normal today. No concerns that would warrant MRI emergently today. We will try some IM injections here followed by prescription for lidocaine patch, refill of the muscle relaxer, we will trial gabapentin since she is having some nerve issues down the left leg. I believe she is otherwise stable for discharge with outpatient follow-up. She was sent home with strict return precautions Departure Impression Primary Impression: Low back pain Qualified Codes: M54.42 - Lumbago with sciatica, left side Disposition: HOME, SELF-CARE Condition: Stable Departure-Patient Inst. Decision time for Depature: 06:30 Referrals: LEÓN JAH DO (PCP/Family) Primary Care Physician Patient Instructions: Low Back Pain ED Add. Discharge Instructions: Unfortunately we will not be able to take this pain away, we may be able to make it just slightly better. The next steps would be going forward with physical therapy, taking Tylenol [id number], using prescription strength lidocaine patches, adding in the gabapentin scheduled, liberal use of a heating pad (careful not to burn yourself), and taking the hydrocodone or oxycodone that you have at home with food as needed for breakthrough pain. You can also trial the muscle relaxer at night with this to try to help you get some rest. Unfortunately as we discussed, "sleeping pills" will not be helpful in this scenario. The next best steps would be to go forward with physical therapy, if pain persist after that then discussing an MRI as an outpatient and referral to a spinal surgeon. Scripts Gabapentin (Gabapentin) 100 Mg Capsule 300 MG PO Q8H for Neuropathic pain for 14 Days, #126 CAP Prov: JAYDA SAMUEL MD 10/10/22 Lidocaine (Lidocaine 5% Patch) 5 % Adh..patch 1 EACH TP Q12H PRN for Neuropathic pain MDD 2 for 14 Days, #28 PATCH 2 patches max for 12 hours, then 12 hours patch-free period. Prov: JAYDA SAMUEL MD 10/10/22 Cyclobenzaprine HCl (Cyclobenzaprine HCl) 10 Mg Tablet 10 MG PO BID PRN for SPASMS for 7 Days, #14 TAB Prov: JAYDA SAMUEL MD 10/10/22 JAYDA SAMUEL MD Oct 10, 2022 06:25
[2022-10-10] MEDS ORDERED: GABA-486 PO (06:26)
[2022-10-10] MEDS ORDERED: CYCL10TA25 PO (06:26)
[2022-10-10] MEDS ORDERED: LIDO700A45 TP (06:26)
[2022-10-10] MEDS ORDERED: ORPHENADRINE 60 MG/2 ML AMP (ED ONLY) IM ONE (06:30)
[2022-10-10] MEDS ORDERED: GABAPENTIN 300 MG CAPSULE PO ONE (06:30)
[2022-10-10] MEDS ORDERED: KETOROLAC INJ 30 MG/ML VIAL IM ONE (06:30)
[2022-10-10] MEDS ORDERED: ACETAMINOPHEN 500 MG TABLET PO ONE (06:30)
[2022-10-10 06:51] VITALS: BP 132/86
== END 2022-10-10 06:51 | disposition home or self-care (01) ==
LOC: EDUNIT# 05:39 → ER 05:43
DX: M54.50 Low back pain, unspecified (principal); Z28.310 Unvaccinated for COVID-19
CPT/HCPCS: 99284